=== PATIENT | female | born 1975 | race American Indian/Alaskan Native ===

== ENCOUNTER 2016-09-21 13:31 | Emergency (ER) | payer MEDICAID ==
[2016-09-21 14:33] LABS: Basophils % (Auto) 0.3 % (0.0-1.8); Eosinophils % (Auto) 0.3 % (0.0-4.3); Hematocrit 37.9 % (30.3-42.9); Hemoglobin 12.2 gm/dl (10.1-14.3); Mean Corpuscular HGB Conc 32 % (30-34); Mean Corpuscular Hemoglobin 28 pg (28-32); Mean Corpuscular Volume 86 fl (79-97); Platelet Count 280 K/mm3 (140-440); Red Blood Count 4.39 M/mm3 (3.65-5.03); Red Cell Distribution Width 16.1 % (13.2-15.2); White Blood Count 14.9 K/mm3 (4.5-11.0)
[2016-09-21 15:07] LABS: Anion Gap 18 mmol/L; BUN/Creatinine Ratio 7.14; Blood Urea Nitrogen 5 mg/dL (7-17); Calcium 9.1 mg/dL (8.4-10.2); Carbon Dioxide 25 mmol/L (22-30); Glucose 176 mg/dL (65-100); Potassium 3.5 mmol/L (3.6-5.0); Sodium 138 mmol/L (137-145)
[2016-09-21] MEDS ORDERED: ZOFRAN IV ONE (20:59)
[2016-09-21] MEDS ORDERED: DILAUDID IV ONE ×2 (20:59→22:23)
--- NOTE | 2016-09-21 21:31 | Emergency Department Report ---
ED General Adult HPI - General Chief complaint: Chest Pain Stated complaint: CHEST PAIN Time Seen by Provider: 09/21/16 20:27 Source: patient, old records reviewed (negative stress test 08/30/2015) Mode of arrival: Ambulatory Limitations: No Limitations - History of Present Illness Initial comments: 41-year-old female with a past medical history of immunologic disorder Vogt- Koyanagi-dominique syndrome, anxiety, diabetes, and chronic pain presents to the hospital with multiple pain complaints. Symptoms appear to be ongoing and progressive. She complains of worsening blurry vision, headache feeling like her brain is swelling, generalized joint pains, and sternal chest pain 2 weeks. Similar chest pain is described as constant, rated 10/10 intensity, worse with palpation and movement. No complaints of shortness breath, nausea, vomiting, diarrhea, or fever. Patient does take hydrocodone 10 mg and reports that it is not helping. Patient has had similar previous visits to the ED. Her bookkeeping service sales agent is Dr. Jhony Hankins associated with [facility] Severity scale (0 -10): 5 - Related Data Home Medications Medication Instructions Recorded Confirmed Last Taken Folic Acid [Folvite] 1 mg PO QDAY 11/29/13 09/21/16 09/21/16 Metformin HCl [Glucophage ER] 1,500 mg PO BID 11/29/13 09/21/16 09/21/16 Vitamin A/Vitamin D3 [Pv Vitamin A 1 cap PO TID 11/30/13 09/21/16 09/21/16 & D Softgel] Gabapentin [Neurontin] 900 mg PO TID 04/10/14 09/21/16 09/21/16 Acetaminophen [Tylenol] 500 mg PO PRN 09/21/16 09/21/16 09/21/16 Amitriptyline [Elavil] 50 mg PO QHS 09/21/16 09/21/16 09/21/16 Bee Pollen 550 mg PO 09/21/16 09/21/16 Codeine/Butalbital/ASA/Caffein 1 each PO PRN PRN 09/21/16 09/21/16 09/21/16 [Fiorinal with Codeine #3 Cap] Furosemide [Lasix] 20 mg PO QDAY 09/21/16 09/21/16 09/21/16 [place]-3 Fatty Acids/Fish Oil [Fish 1 each PO 09/21/16 09/21/16 Oil 1,000 mg Softgel] Omeprazole 20 mg PO DAILY 09/21/16 09/21/16 09/21/16 PARoxetine [Paxil] 20 mg PO DAILY 09/21/16 09/21/16 09/21/16 Promethazine [Phenergan] 25 mg ID QHS PRN 09/21/16 09/21/16 09/21/16 Sennosides/Docusate Sodium [Ra 1 each PO BID 09/21/16 09/21/16 09/21/16 Senna Plus Tablet] Turmeric Root Extract [Turmeric] 500 mg PO DAILY 09/21/16 09/21/16 09/21/16 Zolpidem [Ambien] 10 mg PO QHS 09/21/16 09/21/16 09/21/16 Previous Rx's Medication Instructions Recorded Last Taken Type HYDROcodone/APAP 5-325 [Cook 1 tab PO TID #15 tablet 11/21/14 09/21/16 Rx 5-325 mg TAB] ALPRAZolam [Xanax TAB] 0.5 mg PO BID PRN #10 tab 01/14/16 09/21/16 Rx Oxycodone HCl/Acetaminophen 1 each PO Q6HR PRN #20 tablet 09/21/16 Unknown Rx [Percocet 10/325 mg] Allergies Allergy/AdvReac Type Severity Reaction Status Date / Time No Known Allergies Allergy Verified 09/14/15 08:51 ED Review of Systems ROS: Stated complaint: CHEST PAIN Other details as noted in HPI Comment: All other systems reviewed and negative Other: Constitutional: No fevers chills Eyes: Gradually decreased visual acuity ENT: No ear pain or throat pain Neck: Denies pain Respiratory: Denies cough wheezing shortness of breath Cardiovascular: Denies palpitations, syncope GI: Denies abdominal pain, nausea, vomiting, diarrhea : Denies dysuria Musculoskeletal: Denies back pain Skin: Denies rash, lesions, erythema Neurologic: Positive headache Psychiatric: Positive depression however denies suicidal ideation ED Past Medical Hx - Past Medical History Previous Medical History?: Yes Hx Hypertension: No Hx Heart Attack/AMI: No Hx Congestive Heart Failure: No Hx Diabetes: Yes Hx Deep Vein Thrombosis: No Hx Pulmonary Embolism: No Hx GERD: No Hx Liver Disease: No Hx Renal Disease: No Hx Sickle Cell Disease: No Hx Arthritis: No Hx Headaches / Migraines: Yes Hx Seizures: No Hx Kidney Stones: No Hx Psychiatric Treatment: Yes (Panic Attacks/ ANXIETY) Hx Asthma: No Hx COPD: No Hx Tuberculosis: No Hx Dementia: No Hx HIV: No Additional medical history: Anxiety. Iisb-Jnlmdxfd-Lvprcp syndrome - Surgical History Past Surgical History?: Yes Hx Coronary Stent: No Hx Open Heart Surgery: No Hx Pacemaker: No Hx Internal Defibrillator: No Hx Cholecystectomy: No Hx Appendectomy: No Hx Breast Surgery: No Additional Surgical History: Carpal tunnel surgery on left hand - Social History Smoking Status: Current Some Day Smoker Substance Use Type: Prescribed - Medications Home Medications: Home Medications Medication Instructions Recorded Confirmed Last Taken Type Folic Acid [Folvite] 1 mg PO QDAY 11/29/13 09/21/16 09/21/16 History Metformin HCl [Glucophage ER] 1,500 mg PO BID 11/29/13 09/21/16 09/21/16 History Vitamin A/Vitamin D3 [Pv Vitamin A 1 cap PO TID 11/30/13 09/21/16 09/21/16 History & D Softgel] Gabapentin [Neurontin] 900 mg PO TID 04/10/14 09/21/16 09/21/16 History HYDROcodone/APAP 5-325 [Cook 1 tab PO TID #15 tablet 11/21/14 09/21/16 Rx 5-325 mg TAB] ALPRAZolam [Xanax TAB] 0.5 mg PO BID PRN #10 tab 01/14/16 09/21/16 09/21/16 Rx Acetaminophen [Tylenol] 500 mg PO PRN 09/21/16 09/21/16 09/21/16 History Amitriptyline [Elavil] 50 mg PO QHS 09/21/16 09/21/16 09/21/16 History Bee Pollen 550 mg PO 09/21/16 09/21/16 History Codeine/Butalbital/ASA/Caffein 1 each PO PRN PRN 09/21/16 09/21/16 09/21/16 History [Fiorinal with Codeine #3 Cap] Furosemide [Lasix] 20 mg PO QDAY 09/21/16 09/21/16 09/21/16 History [place]-3 Fatty Acids/Fish Oil [Fish 1 each PO 09/21/16 09/21/16 History Oil 1,000 mg Softgel] Omeprazole 20 mg PO DAILY 09/21/16 09/21/16 09/21/16 History Oxycodone HCl/Acetaminophen 1 each PO Q6HR PRN #20 tablet 09/21/16 Unknown Rx [Percocet 10/325 mg] PARoxetine [Paxil] 20 mg PO DAILY 09/21/16 09/21/16 09/21/16 History Promethazine [Phenergan] 25 mg ID QHS PRN 09/21/16 09/21/16 09/21/16 History Sennosides/Docusate Sodium [Ra 1 each PO BID 09/21/16 09/21/16 09/21/16 History Senna Plus Tablet] Turmeric Root Extract [Turmeric] 500 mg PO DAILY 09/21/16 09/21/16 09/21/16 History Zolpidem [Ambien] 10 mg PO QHS 09/21/16 09/21/16 09/21/16 History ED Physical Exam - General Limitations: No Limitations - Other Other exam information: General: No limitations, patient is alert in no acute distress Head exam: Atraumatic, normocephalic Eyes exam: Normal appearance, pupils equal reactive to light, extraocular movements intact ENT: Moist mucous membrane, normal oropharynx Neck exam: Normal inspection, full range of motion, no meningismus nontender Respiratory exam: Clear to auscultation bilateral, no wheezes, rales, crackles Cardiovascular: Normal rate and rhythm, normal heart sounds. Reproducible sternal chest wall tenderness Abdomen: Soft, nondistended, and nontender, with normal bowel sounds, no rebound, or guarding Extremity: Full range of motion normal inspection no deformity, no calf tenderness or edema Back: Normal Inspection, full range of motion, no tenderness Neurologic: Alert, oriented x3, cranial nerves intact, no motor or sensory deficit Psychiatric: normal affect, normal mood Skin: Warm, dry, intact ED Course Vital Signs 09/21/16 09/21/16 09/21/16 13:58 21:03 21:04 Temperature 98.1 F 98.2 F Pulse Rate 111 H 81 Respiratory 18 14 14 Rate Blood Pressure 122/74 Blood Pressure 137/78 [Left] O2 Sat by Pulse 100 100 100 Oximetry - Reevaluation(s) Reevaluation #1: 09/21/16 22:24 pt received Dilaudid 1mg, zofran 4, and solumedrol with improved pain. Additional pain dose requested. Dilaudid and toradol ordered 09/21/16 22:26 - Consultations Consultation #1: 09/21/16 21:13 Case discussed the patient's bookkeeping service sales agent Dr. Johny Hankins. He states that patient was admitted to [facility] after he saw her in the office several weeks ago. She received a burst of steroids at the time and he does not think a another burst of steroids inpatient is warranted. He does recommend one IV dose of Solu -Medrol 125 mg. I informed him we would manage her pain, right for Percocet upon discharge, and encouraged follow-up. He states that his office for reach out ot patient for follow-up ED Medical Decision Making - Lab Data Result diagrams: 09/21/16 14:22 09/21/16 14:22 Lab Results 09/21/16 09/21/16 09/21/16 Range/Units 13:44 14:22 14:22 WBC 14.9 H (4.5-11.0) K/mm3 RBC 4.39 (3.65-5.03) M/mm3 Hgb 12.2 (10.1-14.3) gm/dl Hct 37.9 (30.3-42.9) % MCV 86 (79-97) fl MCH 28 (28-32) pg MCHC 32 (30-34) % RDW 16.1 H (13.2-15.2) % Plt Count 280 (140-440) K/mm3 Lymph % (Auto) 13.2 L (13.4-35.0) % [place] % (Auto) 5.1 (0.0-7.3) % Eos % (Auto) 0.3 (0.0-4.3) % Baso % (Auto) 0.3 (0.0-1.8) % Lymph # 2.0 (1.2-5.4) K/mm3 [place] # 0.8 (0.0-0.8) K/mm3 Eos # 0.1 (0.0-0.4) K/mm3 Baso # 0.1 (0.0-0.1) K/mm3 Seg Neutrophils % 81.1 H (40.0-70.0) % Seg Neutrophils # 12.1 H (1.8-7.7) K/mm3 Sodium 138 (137-145) mmol/L Potassium 3.5 L (3.6-5.0) mmol/L Chloride 99.0 (98-107) mmol/L Carbon Dioxide 25 (22-30) mmol/L Anion Gap 18 mmol/L BUN 5 L (7-17) mg/dL Creatinine 0.7 (0.7-1.2) mg/dL Estimated GFR > 60 ml/min BUN/Creatinine Ratio 7.14 % Glucose 176 H (65-100) mg/dL POC Glucose 203 H (70-105) Calcium 9.1 (8.4-10.2) mg/dL Troponin T < 0.010 (0.00-0.029) ng/mL HCG, Qual (Negative) 09/21/16 09/21/16 09/21/16 Range/Units 14:22 17:07 20:29 WBC (4.5-11.0) K/mm3 RBC (3.65-5.03) M/mm3 Hgb (10.1-14.3) gm/dl Hct (30.3-42.9) % MCV (79-97) fl MCH (28-32) pg MCHC (30-34) % RDW (13.2-15.2) % Plt Count (140-440) K/mm3 Lymph % (Auto) (13.4-35.0) % [place] % (Auto) (0.0-7.3) % Eos % (Auto) (0.0-4.3) % Baso % (Auto) (0.0-1.8) % Lymph # (1.2-5.4) K/mm3 [place] # (0.0-0.8) K/mm3 Eos # (0.0-0.4) K/mm3 Baso # (0.0-0.1) K/mm3 Seg Neutrophils % (40.0-70.0) % Seg Neutrophils # (1.8-7.7) K/mm3 Sodium (137-145) mmol/L Potassium (3.6-5.0) mmol/L Chloride (98-107) mmol/L Carbon Dioxide (22-30) mmol/L Anion Gap mmol/L BUN (7-17) mg/dL Creatinine (0.7-1.2) mg/dL Estimated GFR ml/min BUN/Creatinine Ratio % Glucose (65-100) mg/dL POC Glucose (70-105) Calcium (8.4-10.2) mg/dL Troponin T < 0.010 < 0.010 (0.00-0.029) ng/mL HCG, Qual Negative (Negative) 09/21/16 Range/Units 20:59 WBC (4.5-11.0) K/mm3 RBC (3.65-5.03) M/mm3 Hgb (10.1-14.3) gm/dl Hct (30.3-42.9) % MCV (79-97) fl MCH (28-32) pg MCHC (30-34) % RDW (13.2-15.2) % Plt Count (140-440) K/mm3 Lymph % (Auto) (13.4-35.0) % [place] % (Auto) (0.0-7.3) % Eos % (Auto) (0.0-4.3) % Baso % (Auto) (0.0-1.8) % Lymph # (1.2-5.4) K/mm3 [place] # (0.0-0.8) K/mm3 Eos # (0.0-0.4) K/mm3 Baso # (0.0-0.1) K/mm3 Seg Neutrophils % (40.0-70.0) % Seg Neutrophils # (1.8-7.7) K/mm3 Sodium (137-145) mmol/L Potassium (3.6-5.0) mmol/L Chloride (98-107) mmol/L Carbon Dioxide (22-30) mmol/L Anion Gap mmol/L BUN (7-17) mg/dL Creatinine (0.7-1.2) mg/dL Estimated GFR ml/min BUN/Creatinine Ratio % Glucose (65-100) mg/dL POC Glucose 141 H (70-105) Calcium (8.4-10.2) mg/dL Troponin T (0.00-0.029) ng/mL HCG, Qual (Negative) - EKG Data -: EKG Interpreted by Me (sinus rate 111 possible septal infarct) - EKG Data When compared to previous EKG there are: no significant change (compared to ) - Medical Decision Making Pain is chronic due to underlying autoimmune condition. No acute emergent medical condition identified. Case has been discussed with her bookkeeping service sales agent. Patient be treated symptomatically with encouraged follow-up. Pt given po potassium - Differential Diagnosis chronic pain, infection, migraine, VT, costochondritis Critical Care Time: No Critical care attestation.: If time is entered above; I have spent that time in minutes in the direct care of this critically ill patient, excluding procedure time. ED Disposition Clinical Impression: Autoimmune disease, Gkop-Fqsjtugl-Mwalfr syndrome, Headache, Arthralgia, Costochondritis, Hypokalemia Disposition: DISCHARGED TO HOME OR SELFCARE Is pt being admited?: No Does the pt Need Aspirin: No Condition: Stable Instructions: Chronic Pain (ED), Acute Headache (ED), Arthralgia (ED) Additional Instructions: Take the pain medication as prescribed. Follow up with your rheumotologist. I contacted Dr. Hankins and he mentioned his office will reach out to tomorrow however, if do not hear from them then you may also call for follow-up Prescriptions: Oxycodone HCl/Acetaminophen [Percocet 10/325 mg] 1 each PO Q6HR PRN #20 tablet PRN Reason: Pain Referrals: Jhony Hankins MD [Other] - 3-5 Days Time of Disposition: 23:10
[2016-09-21] MEDS ORDERED: TORADOL IV ONE (21:34)
[2016-09-21] MEDS ORDERED: K-DUR PO ONE (22:28)
[2016-09-21 23:34] VITALS: BP 125/66
== END 2016-09-21 23:34 | disposition home or self-care (01) ==
LOC: ED 13:31
DX: H20.829 Vogt-Koyanagi syndrome, unspecified eye (principal); M35.9 Systemic involvement of connective tissue, unspecified; M19.90 Unspecified osteoarthritis, unspecified site; M94.0 Chondrocostal junction syndrome [Tietze]; E87.6 Hypokalemia; R51 Headache; E11.9 Type 2 diabetes mellitus without complications; F41.0 Panic disorder [episodic paroxysmal anxiety]; F17.200 Nicotine dependence, unspecified, uncomplicated
CPT/HCPCS: 36415; 80048; 82962; 84484; 84703; 85025; 93005; 93010; 96374; 96375; 96376; 99284; J1170; J1885; J2405; J2930

== ENCOUNTER 2016-11-17 17:46 | Emergency (ER) | payer MEDICAID ==
[2016-11-17 18:00] VITALS: BP 139/77
[2016-11-17 18:13] LABS: Basophils % (Auto) 0.1 % (0.0-1.8); Eosinophils % (Auto) 0.4 % (0.0-4.3); Hemoglobin 12.2 gm/dl (10.1-14.3); Mean Corpuscular HGB Conc 33 % (30-34); Mean Corpuscular Hemoglobin 28 pg (28-32); Mean Corpuscular Volume 85 fl (79-97); Platelet Count 316 K/mm3 (140-440); Red Blood Count 4.34 M/mm3 (3.65-5.03); Red Cell Distribution Width 15.6 % (13.2-15.2); White Blood Count 15.5 K/mm3 (4.5-11.0)
[2016-11-17 18:22] LABS: INR 0.97 (0.87-1.13)
[2016-11-17 18:23] LABS: Partial Thromboplastin Time 28.3 Sec. (24.2-36.6)
[2016-11-17 19:05] LABS: Anion Gap 19 mmol/L; BUN/Creatinine Ratio 6.66; Blood Urea Nitrogen 4 mg/dL (7-17); Calcium 8.8 mg/dL (8.4-10.2); Carbon Dioxide 24 mmol/L (22-30); Glucose 103 mg/dL (65-100); Potassium 3.3 mmol/L (3.6-5.0); Sodium 139 mmol/L (137-145)
--- NOTE | 2016-11-21 07:59 | ED Elopement Review ---
ED Pt Elopement review - Results review Lab results: Laboratory Tests 11/17/16 11/17/16 11/17/16 18:03 18:03 18:03 WBC 15.5 H RBC 4.34 Hgb 12.2 Hct 37.0 MCV 85 MCH 28 MCHC 33 RDW 15.6 H Plt Count 316 Lymph % (Auto) 24.0 [place] % (Auto) 5.4 Eos % (Auto) 0.4 Baso % (Auto) 0.1 Lymph # 3.7 [place] # 0.8 Eos # 0.1 Baso # 0.0 Seg Neutrophils % 70.1 H Seg Neutrophils # 10.8 H PT 12.8 INR 0.97 APTT 28.3 Thrombin Time Sodium 139 Potassium 3.3 L Chloride 99.0 Carbon Dioxide 24 Anion Gap 19 BUN 4 L Creatinine 0.6 L Estimated GFR > 60 BUN/Creatinine Ratio 6.66 Glucose 103 H POC Glucose Calcium 8.8 Troponin T < 0.010 11/17/16 11/17/16 18:07 18:10 WBC RBC Hgb Hct MCV MCH MCHC RDW Plt Count Lymph % (Auto) [place] % (Auto) Eos % (Auto) Baso % (Auto) Lymph # [place] # Eos # Baso # Seg Neutrophils % Seg Neutrophils # PT INR APTT Thrombin Time 15.2 Sodium Potassium Chloride Carbon Dioxide Anion Gap BUN Creatinine Estimated GFR BUN/Creatinine Ratio Glucose POC Glucose 104 Calcium Troponin T - Call Back decision Pt Call Back Decision: Pt to F/U with PMD (leukopcytosis headache)
== END 2016-11-18 | disposition left against medical advice (07) ==
LOC: ED 17:46
DX: G43.909 Migraine, unspecified, not intractable, without status migrainosus (principal); Z53.21 Procedure and treatment not carried out due to patient leaving prior to being seen by health care provider
CPT/HCPCS: 36415; 80048; 82962; 84484; 85025; 85610; 85670; 85730; 93005; 93010

== ENCOUNTER 2017-02-18 02:37 | Emergency (ER) | payer BC, MEDICAID ==
[2017-02-18 04:24] LABS: Basophils % (Auto) 0.6 % (0.0-1.8); Eosinophils % (Auto) 1.3 % (0.0-4.3); Hematocrit 35.9 % (30.3-42.9); Hemoglobin 12.1 gm/dl (10.1-14.3); Mean Corpuscular HGB Conc 34 % (30-34); Mean Corpuscular Hemoglobin 28 pg (28-32); Mean Corpuscular Volume 84 fl (79-97); Platelet Count 314 K/mm3 (140-440); Red Blood Count 4.27 M/mm3 (3.65-5.03); White Blood Count 14.7 K/mm3 (4.5-11.0)
[2017-02-18 04:39] LABS: Alanine Aminotransferase 13 units/L (7-56); Albumin 3.8 g/dL (3.9-5); Albumin/Globulin Ratio 1.5 %; Alkaline Phosphatase 81 units/L (35-129); Anion Gap 18 mmol/L; BUN/Creatinine Ratio 13.33; Bilirubin,Total < 0.20 mg/dL (0.1-1.2); Blood Urea Nitrogen 8 mg/dL (7-17); Calcium 8.9 mg/dL (8.4-10.2); Carbon Dioxide 26 mmol/L (22-30); Chloride 100.4 mmol/L (98-107); Glucose 98 mg/dL (65-100); Potassium 3.7 mmol/L (3.6-5.0); Sodium 141 mmol/L (137-145); Total Protein 6.3 g/dL (6.3-8.2)
[2017-02-18 04:57] LABS: Bacteria,Urine 1+ /HPF (Negative); Bilirubin,Urine NEG (Negative); Blood,Urine NEG (Negative); Ketones,Urine NEG (Negative); Leukocyte Esterase,Urine NEG (Negative); Mucus,Urine FEW /HPF; Nitrite,Urine NEG (Negative); Protein,Urine <15 mg/dL mg/dL (Negative); Urobilinogen,Urine < 2.0 mg/dL (<2.0)
--- NOTE | 2017-02-18 05:17 | Cat Scan Report ---
FINAL REPORT PROCEDURE: CT HEAD/BRAIN WO CON TECHNIQUE: Computerized tomography of the head was performed without contrast material. HISTORY: VKH syndrome COMPARISON: 01/14/2016 FINDINGS: Skull and scalp: Normal. Paranasal sinuses: Normal. Ventricles and subarachnoid spaces: Normal. Cerebrum: No evidence of hemorrhage, acute infarction or mass . Cerebellum and brainstem: No evidence of hemorrhage, acute infarction or mass. Vasculature: Normal. Comments: None. IMPRESSION: There is no evidence of an acute intracranial process.
[2017-02-18] MEDS ORDERED: MORPHINE IV ONE (06:27)
[2017-02-18] MEDS ORDERED: ZOFRAN IV ONE (06:27)
[2017-02-18] MEDS ORDERED: NACL 0.9% 1000 ML 1,000 ML IV ONE (06:47)
--- NOTE | 2017-02-18 06:47 | Emergency Department Report ---
HPI - General Chief Complaint: Nausea/Vomiting/Diarrhea Time Seen by Provider: 02/18/17 06:13 - HPI HPI: This is a 41-year-old female who presents the emergency department from home with complaint of an exacerbation of an autoimmune disorder she has, VKH syndrome, that has been going on for the past 3 days. The patient complains of some ear drainage, generalized headache, nausea and vomiting. She has tried some Vicodin for her symptoms without any relief. She denies any slurred speech, chest pain, shortness of breath, fever. No recent travel or sick contacts at home. Her primary care physician is a Dr. Khan. Fisher Clam is Dr. Patel. ED Past Medical Hx - Past Medical History Previous Medical History?: Yes Hx Hypertension: No Hx Heart Attack/AMI: No Hx Congestive Heart Failure: No Hx Diabetes: No Hx Deep Vein Thrombosis: No Hx Pulmonary Embolism: No Hx GERD: No Hx Liver Disease: No Hx Renal Disease: No Hx Sickle Cell Disease: No Hx Arthritis: No Hx Headaches / Migraines: Yes Hx Seizures: No Hx Kidney Stones: No Hx Psychiatric Treatment: Yes (Panic Attacks/ ANXIETY) Hx Asthma: No Hx COPD: No Hx Tuberculosis: No Hx Dementia: No Hx HIV: No Additional medical history: Anxiety. Ajsr-Gcdzyzyp-Qmrptg syndrome - Surgical History Past Surgical History?: Yes Hx Coronary Stent: No Hx Open Heart Surgery: No Hx Pacemaker: No Hx Internal Defibrillator: No Hx Cholecystectomy: No Hx Appendectomy: No Hx Breast Surgery: No Additional Surgical History: Carpal tunnel surgery on left hand - Social History Smoking Status: Current Every Day Smoker Substance Use Type: None - Medications Home Medications: Home Medications Medication Instructions Recorded Confirmed Last Taken Type Folic Acid [Folvite] 1 mg PO QDAY 11/29/13 09/21/16 09/21/16 History Metformin HCl [Glucophage ER] 1,500 mg PO BID 11/29/13 09/21/16 09/21/16 History Vitamin A/Vitamin D3 [Pv Vitamin A 1 cap PO TID 11/30/13 09/21/16 09/21/16 History & D Softgel] Gabapentin [Neurontin] 900 mg PO TID 04/10/14 09/21/16 09/21/16 History ALPRAZolam [Xanax TAB] 0.5 mg PO BID PRN #10 tab 01/14/16 09/21/16 09/21/16 Rx Acetaminophen [Tylenol] 500 mg PO PRN 09/21/16 09/21/16 09/21/16 History Amitriptyline [Elavil] 50 mg PO QHS 09/21/16 09/21/16 09/21/16 History Bee Pollen 550 mg PO 09/21/16 09/21/16 History Codeine/Butalbital/ASA/Caffein 1 each PO PRN PRN 09/21/16 09/21/16 09/21/16 History [Fiorinal with Codeine #3 Cap] Furosemide [Lasix] 20 mg PO QDAY 09/21/16 09/21/16 09/21/16 History [place]-3 Fatty Acids/Fish Oil [Fish 1 each PO 09/21/16 09/21/16 History Oil 1,000 mg Softgel] Omeprazole 20 mg PO DAILY 09/21/16 09/21/16 09/21/16 History PARoxetine [Paxil] 20 mg PO DAILY 09/21/16 09/21/16 09/21/16 History Promethazine [Phenergan] 25 mg [place] QHS PRN 09/21/16 09/21/16 09/21/16 History Sennosides/Docusate Sodium [Ra 1 each PO BID 09/21/16 09/21/16 09/21/16 History Senna Plus Tablet] Turmeric Root Extract [Turmeric] 500 mg PO DAILY 09/21/16 09/21/16 09/21/16 History Zolpidem [Ambien] 10 mg PO QHS 09/21/16 09/21/16 09/21/16 History Ondansetron [Zofran Odt] 4 mg PO Q8HR PRN #10 tab.rapdis 02/18/17 Unknown Rx Oxycodone HCl/Acetaminophen 1 each PO Q6HR PRN #12 tablet 02/18/17 Unknown Rx [Percocet 10/325 mg] predniSONE [Deltasone] 20 mg PO QDAY #7 tab 02/18/17 Unknown Rx ED Review of Systems ROS: Stated complaint: NAUSEA/ VOMITING, EAR DRAINING Other details as noted in HPI Comment: All other systems reviewed and negative Constitutional: denies: chills, fever Eyes: denies: eye pain, eye discharge ENT: ear pain. denies: throat pain Respiratory: denies: cough, shortness of breath, wheezing Cardiovascular: denies: chest pain, palpitations Gastrointestinal: nausea, vomiting Genitourinary: denies: urgency, dysuria, discharge Musculoskeletal: denies: back pain, joint swelling, arthralgia Skin: denies: rash, lesions Neurological: headache. denies: weakness, numbness Physical Exam - Physical Exam Vital Signs: Vital Signs 02/18/17 02/18/17 03:33 04:55 Temperature 98.0 F 98 F Pulse Rate 89 79 Respiratory 18 18 Rate Blood Pressure 128/76 Blood Pressure 114/66 [Left] O2 Sat by Pulse 98 98 Oximetry Physical Exam: GENERAL: The patient is well-developed well-nourished. HENT: Normocephalic. Atraumatic. Patient has moist mucous membranes. EYES: Extraocular motions are intact. Pupils equal reactive to light bilaterally. No nystagmus. NECK: Supple. Trachea is midline. CHEST/LUNGS: Clear to auscultation. There is no respiratory distress noted. HEART/CARDIOVASCULAR: Regular. There is no tachycardia. There is no gallop rub or murmur. ABDOMEN: Abdomen is soft, nontender. Patient has normal bowel sounds. There is no abdominal distention. SKIN: There is no rash. There is no edema. There is no diaphoresis. NEURO: The patient is awake, alert, and oriented. The patient is cooperative. The patient has no focal neurologic deficits. The patient has normal speech. Cranial nerves II through XII grossly intact. MUSCULOSKELETAL: There is no tenderness or deformity. There is no limitation range of motion. There is no evidence of acute injury. ED Course Vital Signs 02/18/17 02/18/17 03:33 04:55 Temperature 98.0 F 98 F Pulse Rate 89 79 Respiratory 18 18 Rate Blood Pressure 128/76 Blood Pressure 114/66 [Left] O2 Sat by Pulse 98 98 Oximetry - Consultations Consultation #1: I spoke to the patient's cpo, Dr. Hankins, who suggested that the patient go up to 20 mg of prednisone daily and to follow-up with her certified nurse aide and he himself will also contact her for a follow-up appointment this week. 02/18/17 14:14 ED Medical Decision Making - Lab Data Result diagrams: 02/18/17 04:10 02/18/17 04:10 - Radiology Data Radiology results: report reviewed CT of the head does not show any acute intracranial process including no ischemia, shift, mass, bleeding or skull fracture. - Medical Decision Making 41-year-old female with a rare autoimmune disease presents with a headache, nausea, vomiting that is consistent with previous exacerbations of this disease process. A CT of the head without contrast was done prior to my shift starting and it does not show any bleed, shift, mass or any acute process. Labs are mostly unremarkable and do not show any etiology of her symptoms. She was given some IV fluid, pain medication, steroids and nausea medication. Upon reevaluation she is feeling improved. I spoke with her cpo recommended going to 20 mg of prednisone daily and encouraged follow-up with her certified nurse aide and rheumatology also said they would call the patient is week for follow-up appointment. All this was relayed to the patient and she understands and agrees to the plan. She will return to the ER with any worsening of her symptoms or any acute distress. - Differential Diagnosis tension headache, migraine headache, viral syndrome Critical Care Time: No Critical care attestation.: If time is entered above; I have spent that time in minutes in the direct care of this critically ill patient, excluding procedure time. ED Disposition Clinical Impression: Autoimmune disease Oswd-Ytmqrsak-Oxxsls syndrome Qualifiers: Laterality: unspecified laterality Qualified Code(s): H20.829 - Vogt-Koyanagi syndrome, unspecified eye Headache Qualifiers: Headache type: unspecified Headache chronicity pattern: episodic headache Intractability: not intractable Qualified Code(s): R51 - Headache Nausea & vomiting Qualifiers: Vomiting type: unspecified Vomiting Intractability: non-intractable Qualified Code(s): R11.2 - Nausea with vomiting, unspecified Disposition: DC-01 TO HOME OR SELFCARE Is pt being admited?: No Condition: Stable Instructions: Migraine Headache (ED), Acute Headache (ED), Acute Nausea and Vomiting (ED) Additional Instructions: Please follow up with your certified nurse aide, cpo, and primary care physician in the next few days without fail. Return to the emergency Department with any worsening of her symptoms or any acute distress. Prescriptions: Ondansetron [Zofran Odt] 4 mg PO Q8HR PRN #10 tab.rapdis PRN Reason: Nausea Oxycodone HCl/Acetaminophen [Percocet 10/325 mg] 1 each PO Q6HR PRN #12 tablet PRN Reason: Pain predniSONE [Deltasone] 20 mg PO QDAY #7 tab Referrals: LESVIA HANKINS MD [Referring] - [facility] NADEEM LANG MD [Staff Physician] - [facility], [Primary Care Provider] - [facility] Time of Disposition: 09:02
[2017-02-18 07:57] VITALS: BP 110/56
[2017-02-18] MEDS ORDERED: DILAUDID IV ONE (08:05)
== END 2017-02-18 09:20 | disposition home or self-care (01) ==
LOC: ED 02:37
DX: M35.9 Systemic involvement of connective tissue, unspecified (principal); H20.829 Vogt-Koyanagi syndrome, unspecified eye; R51 Headache; R11.2 Nausea with vomiting, unspecified; F17.200 Nicotine dependence, unspecified, uncomplicated
CPT/HCPCS: 36415; 70450; 80053; 81001; 85025; 96361; 96374; 96375; 99284; J1170; J2270; J2405; J2930; J7030

== ENCOUNTER 2017-08-27 12:46 | Emergency (ER) | payer BC, OTHER ==
[2017-08-27] MEDS ORDERED: PERCOCET 5/325 PO ONE (15:29)
--- NOTE | 2017-08-27 15:32 | Emergency Department Report ---
Chief Complaint: Pain General Stated Complaint: MIGRAINES, NAUSEA, FEVER - HPI History of Present Illness: 42-year-old female with a history of VKH syndrome and fibromyalgia, diabetes presents with a three-day history of dizziness, body aches, migraine headaches with photophobia. Takes chronic steroids. Follows with primary care and rheumatology. - ROS Review of Systems: Patient is positive for headache, photophobia, body aches, dizziness/ lightheadedness Patient is negative for fever, shortness of breath, nausea, vomiting - Exam Vital Signs: Vital Signs 08/27/17 12:57 Temperature 98.6 F Pulse Rate 97 H Respiratory 18 Rate Blood Pressure 130/72 O2 Sat by Pulse 96 Oximetry Physical Exam: Patient is awake and alert. She is tearful secondary to her pain. MSE screening note: Focused history and physical exam performed. Due to findings the following was ordered: I ordered a CBC, CMP, TSH, troponin. She was given a Percocet for her discomfort. She will be moved to the main emergency Department side for further evaluation and treatment. ED Disposition for MSE Condition: Stable
[2017-08-27 15:55] LABS: Basophils # (Auto) 0.1 K/mm3 (0.0-0.1); Basophils % (Auto) 0.4 % (0.0-1.8); Eosinophils # (Auto) 0.3 K/mm3 (0.0-0.4); Eosinophils % (Auto) 2.3 % (0.0-4.3); Hemoglobin 12.5 gm/dl (10.1-14.3); Lymphocytes # (Auto) 3.9 K/mm3 (1.2-5.4); Lymphocytes % (Auto) 27.7 % (13.4-35.0); Mean Corpuscular HGB Conc 34 % (30-34); Mean Corpuscular Hemoglobin 28 pg (28-32); Mean Corpuscular Volume 84 fl (79-97); Monocytes # (Auto) 0.9 K/mm3 (0.0-0.8); Monocytes % (Auto) 6.2 % (0.0-7.3); Platelet Count 273 K/mm3 (140-440); Red Blood Count 4.43 M/mm3 (3.65-5.03); Red Cell Distribution Width 17.5 % (13.2-15.2)
[2017-08-27 16:15] LABS: Alanine Aminotransferase 15 units/L (7-56); Albumin 4.2 g/dL (3.9-5); BUN/Creatinine Ratio 13; Blood Urea Nitrogen 9 mg/dL (7-17); Calcium 9.1 mg/dL (8.4-10.2); Hemolysis Index 10
[2017-08-27] MEDS ORDERED: REGLAN IV ONE (16:59)
[2017-08-27] MEDS ORDERED: BENADRYL IV ONE (16:59)
[2017-08-27] MEDS ORDERED: MORPHINE IV ONE ×2 (16:59→18:51)
--- NOTE | 2017-08-27 18:51 | Emergency Department Report ---
HPI - General Chief Complaint: Pain General Time Seen by Provider: 08/27/17 16:18 - HPI HPI: The patient is a 42-year-old female with a history of chronic headaches who presents for evaluation of recurrence of headache. The patient reports on and off headache for the past 3 days, 9/10 in severity, aching in quality, worsened with bright lights. She shares that her symptoms are consistent with previous episodes of chronic migraines. The patient denies fever, head injury or trauma to the head, neck pain or neck stiffness, chest pain, cough, dyspnea, abdominal pain, vomiting, dysuria, vision or hearing changes, smell or taste changes, paresthesias, facial drooping, slurred speech, seizure-like activity, urine or bowel incontinence or retention, or other focal neurological deficit. ED Past Medical Hx - Past Medical History Hx Hypertension: No Hx Heart Attack/AMI: No Hx Congestive Heart Failure: No Hx Diabetes: Yes Hx Deep Vein Thrombosis: No Hx Pulmonary Embolism: No Hx GERD: No Hx Liver Disease: No Hx Renal Disease: No Hx Sickle Cell Disease: No Hx Arthritis: No Hx Headaches / Migraines: Yes Hx Seizures: No Hx Kidney Stones: No Hx Psychiatric Treatment: Yes (Panic Attacks/ ANXIETY) Hx Asthma: No Hx COPD: No Hx Tuberculosis: No Hx Dementia: No Hx HIV: No Additional medical history: Anxiety. [id number]-[id number] syndrome - Surgical History Hx Coronary Stent: No Hx Open Heart Surgery: No Hx Pacemaker: No Hx Internal Defibrillator: No Hx Cholecystectomy: No Hx Appendectomy: No Hx Breast Surgery: No Additional Surgical History: Carpal tunnel surgery on left hand,fibromyalgia - Social History Smoking Status: Current Every Day Smoker Substance Use Type: None - Medications Home Medications: Home Medications Medication Instructions Recorded Confirmed Last Taken Type Acetaminophen [Tylenol] 500 mg PO PRN 09/21/16 04/20/17 04/20/17 History Amitriptyline [Elavil] 50 mg PO QHS 09/21/16 04/20/17 04/19/17 History Codeine/Butalbital/ASA/Caffein 1 each PO PRN PRN 09/21/16 04/20/17 04/20/17 History [Fiorinal with Codeine #3 Cap] PARoxetine [Paxil] 20 mg PO DAILY 09/21/16 04/20/17 04/20/17 History Olanzapine [Zyprexa] 15 mg PO DAILY 04/20/17 04/20/17 04/20/17 History Furosemide [Lasix TAB] 20 mg PO QDAY #10 04/22/17 04/20/17 04/20/17 Rx Levofloxacin [Levaquin] 750 mg PO QDAY #7 tablet 04/22/17 Unknown Rx Mycophenolate [Cellcept] 500 mg PO BID tablet 04/22/17 Unknown Rx OLANzapine [ZyPREXA] 15 mg PO DAILY tablet 04/22/17 Unknown Rx predniSONE [Deltasone] 20 mg PO QDAY #30 tab 04/22/17 Unknown Rx Azithromycin [Zithromax Z-JOVI] 250 mg PO QDAY #6 tablet 08/27/17 Unknown Rx HYDROcodone/APAP 7.5-325 [[place] 1 each PO Q8HR PRN #10 tablet 08/27/17 Unknown Rx 7.5-325 mg TAB] predniSONE [Deltasone] 20 mg PO QDAY #5 tab 08/27/17 Unknown Rx ED Review of Systems ROS: Stated complaint: MIGRAINES, NAUSEA, FEVER Other details as noted in HPI Constitutional: denies: fever ENT: denies: throat or neck pain Respiratory: denies: cough, shortness of breath Cardiovascular: denies: chest pain Endocrine: denies unexplained weight loss or gain Gastrointestinal: denies: abdominal pain, nausea Genitourinary: denies: dysuria Musculoskeletal: denies: leg swelling Skin: denies: rash Neurological: reports headache Hematological/Lymphatic: denies: easy bleeding or easy bruising Psych: denies sadness or hopelessness Physical Exam - Physical Exam Vital Signs: Vital Signs 08/27/17 12:57 Temperature 98.6 F Pulse Rate 97 H Respiratory 18 Rate Blood Pressure 130/72 O2 Sat by Pulse 96 Oximetry Physical Exam: General: well-nourished, well-developed, no acute distress Head: Normocephalic, atraumatic Eyes: normal sclera ENT: Mucous membranes are pale and dry Neck: No neck stiffness, no cervical adenopathy Respiratory: Breath sounds equal bilaterally, no wheezing, rales, or rhonchi Cardio: S1 and S2 present, no murmurs, rubs, gallops, capillary refill is delayed Abdomen: Normoactive bowel sounds, soft abdomen, no rigidity, no guarding or rebound tenderness Musc: No pitting edema Skin: No rash Neuro: alert oriented x4, normal cognition, speech normal, PERRL, EOM intact, no facial drooping, no uvula or tongue deviation on protrusion, no deficit with rotation of neck or shoulder shrug, no obvious gross motor deficit in the upper or lower extremities with flexion or extension at the shoulder, elbow, wrist, hip, knee, or ankle bilaterally, no obvious gross sensation deficit to crude touch or 2 pt discrimination, 2+ symmetric reflexes on DTR testing, no dysmetria , dysdiadochokinesia, no coordination deficit with [id number] or heel-to- humphries testing, romberg negative, patient able to to ambulate without abnormal gait Psych: Normal affect ED Course Vital Signs 08/27/17 12:57 Temperature 98.6 F Pulse Rate 97 H Respiratory 18 Rate Blood Pressure 130/72 O2 Sat by Pulse 96 Oximetry ED Medical Decision Making - Lab Data Result diagrams: 08/27/17 15:38 08/27/17 15:38 - Medical Decision Making The patient was seen and examined by myself. The patient is placed on a campus monitor and continuous pulse ox. On initial evaluation, the patient was found to be in no distress. As there are no neuro deficits or other findings on examination concerning for acute meningitis or other intracranial disease process, and as the patient states that symptoms are consistent with previous headaches, the patient is low pretest probability for meningitis and a CAT scan of the head will not be obtained at this time. IV access is established and the patient is given IV Reglan, Benadryl, and IV analgesic for headache. The patient was reevaluated and reported that their symptoms were markedly improved. The patient is stable for discharge with outpatient follow-up. The patient is given follow-up and return instructions. The patient expressed understanding and agreed with the plan. The patient is discharged in stable condition. Critical care attestation.: If time is entered above; I have spent that time in minutes in the direct care of this critically ill patient, excluding procedure time. ED Disposition Clinical Impression: Acute non intractable tension-type headache, Dehydration, mild, Myalgia Disposition: TO HOME OR SELFCARE Is pt being admited?: No Does the pt Need Aspirin: No Condition: Stable Instructions: Acute Headache (ED), Musculoskeletal Pain (ED) Additional Instructions: Do not take more than the prescribed dose of pain medicine, or combine or take the pain medicine prescribed to you today with other pain medicine, sleeping medicine or other sedatives, or with alcohol, as doing so may cause central nervous system sedation and respiratory depression, and potentially cause you to stop breathing and . Additionally, do not drive a vehicle, operate heavy machinery, or engage in any activity that would cause harm to yourself or others after taking the pain medicine prescribed to you. Prescriptions: Azithromycin [Zithromax Z-JOVI] 250 mg PO QDAY #6 tablet HYDROcodone/APAP 7.5-325 [[place] 7.5-325 mg TAB] 1 each PO Q8HR PRN #10 tablet PRN Reason: Pain predniSONE [Deltasone] 20 mg PO QDAY #5 tab Referrals: PRIMARY CARE, [Primary Care Provider] - 3-5 Days Time of Disposition: 18:44
[2017-08-27 19:13] VITALS: BP 136/68
== END 2017-08-27 19:13 | disposition home or self-care (01) ==
LOC: ED 12:46
DX: G44.209 Tension-type headache, unspecified, not intractable (principal); E86.0 Dehydration; M79.1 Myalgia; I10 Essential (primary) hypertension; G43.909 Migraine, unspecified, not intractable, without status migrainosus; F41.9 Anxiety disorder, unspecified; F17.200 Nicotine dependence, unspecified, uncomplicated
CPT/HCPCS: 36415; 80053; 82550; 84443; 84484; 85025; 93005; 93010; 96374; 96375; 96376; 99284; J1200; J2270; J2765; J2930

== ENCOUNTER 2017-08-31 11:57 | Inpatient (IN) | payer OTHER ==
--- NOTE | 2017-08-31 14:22 | Emergency Department Report ---
Blank Doc - Documentation Documentation: Patient is a 42-year-old female who is presenting with headache chest pain for the last several days. Patient had a syncopal episode on arrival to the emergency department. Patient has a history of VK H syndrome. Patient is complaining of chest and head pain patient be moved to the main area for continued care monitoring.
[2017-08-31 14:53] LABS: Basophils # (Auto) 0.2 K/mm3 (0.0-0.1); Basophils % (Auto) 1.1 % (0.0-1.8); Eosinophils % (Auto) 0.2 % (0.0-4.3); Hematocrit 39.9 % (30.3-42.9); Lymphocytes % (Auto) 15.9 % (13.4-35.0); Mean Corpuscular HGB Conc 33 % (30-34); Mean Corpuscular Hemoglobin 28 pg (28-32); Mean Corpuscular Volume 85 fl (79-97); Monocytes # (Auto) 0.9 K/mm3 (0.0-0.8); Monocytes % (Auto) 4.6 % (0.0-7.3); Platelet Count 351 K/mm3 (140-440); Red Blood Count 4.72 M/mm3 (3.65-5.03); Red Cell Distribution Width 16.9 % (13.2-15.2)
--- NOTE | 2017-08-31 14:54 | XRay Report ---
AP CHEST: HISTORY: chest pain AP view of the chest demonstrates a normal mediastinal and cardiac contour with clear lungs and normal bony and soft tissue structures. IMPRESSION: Unremarkable AP chest. No significant change since 04/20/17.
[2017-08-31 15:16] LABS: Alanine Aminotransferase 18 units/L (7-56); Albumin 4.1 g/dL (3.9-5); BUN/Creatinine Ratio 12; Blood Urea Nitrogen 7 mg/dL (7-17); Calcium 9.4 mg/dL (8.4-10.2); Hemolysis Index 43
[2017-08-31] MEDS ORDERED: DILAUDID IV ONE (15:53)
--- NOTE | 2017-08-31 15:57 | Emergency Department Report ---
HPI - General Chief Complaint: Chest Pain Time Seen by Provider: 08/31/17 14:16 - HPI HPI: 42-year-old female presents to the emergency department with a complaint of a headache and some midsternal chest pain that has been going on since last Sunday. When she came back for evaluation she was seen passing out in the Q track. She is currently awake and alert. She has a history of diabetes, migraines, anxiety, fibromyalgia and the KH syndrome. She has a primary care physician, Dr. 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 She has been taking her chronic steroids as well as some pain medication for her symptoms without any relief. No recent travel or sick contacts at home. The patient was seen here on Sunday, 5 days ago for some similar symptoms. She has a history of a negative stress test from August 2015. ED Past Medical Hx - Past Medical History Hx Hypertension: No Hx Heart Attack/AMI: No Hx Congestive Heart Failure: No Hx Diabetes: Yes Hx Deep Vein Thrombosis: No Hx Pulmonary Embolism: No Hx GERD: No Hx Liver Disease: No Hx Renal Disease: No Hx Sickle Cell Disease: No Hx Arthritis: No Hx Headaches / Migraines: Yes Hx Seizures: No Hx Kidney Stones: No Hx Psychiatric Treatment: Yes (Panic Attacks/ ANXIETY) Hx Asthma: No Hx COPD: No Hx Tuberculosis: No Hx Dementia: No Hx HIV: No Additional medical history: Anxiety. Oicg-[id number] syndrome - Surgical History Hx Coronary Stent: No Hx Open Heart Surgery: No Hx Pacemaker: No Hx Internal Defibrillator: No Hx Cholecystectomy: No Hx Appendectomy: No Hx Breast Surgery: No Additional Surgical History: Carpal tunnel surgery on left hand,fibromyalgia - Social History Smoking Status: Current Every Day Smoker Substance Use Type: None - Medications Home Medications: Home Medications Medication Instructions Recorded Confirmed Last Taken Type Acetaminophen [Tylenol] 500 mg PO PRN 09/21/16 04/20/17 04/20/17 History Amitriptyline [Elavil] 50 mg PO QHS 09/21/16 04/20/17 04/19/17 History Codeine/Butalbital/ASA/Caffein 1 each PO PRN PRN 09/21/16 04/20/17 04/20/17 History [Fiorinal with Codeine #3 Cap] PARoxetine [Paxil] 20 mg PO DAILY 09/21/16 04/20/17 04/20/17 History Olanzapine [Zyprexa] 15 mg PO DAILY 04/20/17 04/20/17 04/20/17 History Furosemide [Lasix TAB] 20 mg PO QDAY #10 04/22/17 04/20/17 04/20/17 Rx Levofloxacin [Levaquin] 750 mg PO QDAY #7 tablet 04/22/17 Unknown Rx Mycophenolate [Cellcept] 500 mg PO BID tablet 04/22/17 Unknown Rx OLANzapine [ZyPREXA] 15 mg PO DAILY tablet 04/22/17 Unknown Rx predniSONE [Deltasone] 20 mg PO QDAY #30 tab 04/22/17 Unknown Rx Azithromycin [Zithromax Z-JOVI] 250 mg PO QDAY #6 tablet 08/27/17 Unknown Rx HYDROcodone/APAP 7.5-325 [[place] 1 each PO Q8HR PRN #10 tablet 08/27/17 Unknown Rx 7.5-325 mg TAB] predniSONE [Deltasone] 20 mg PO QDAY #5 tab 08/27/17 Unknown Rx ED Review of Systems ROS: Stated complaint: CHEST PAIN Other details as noted in HPI Comment: All other systems reviewed and negative Constitutional: denies: chills, fever Eyes: denies: eye pain, eye discharge, vision change ENT: denies: ear pain, throat pain Respiratory: shortness of breath. denies: cough Cardiovascular: chest pain, syncope. denies: palpitations Gastrointestinal: denies: abdominal pain, nausea, diarrhea Genitourinary: denies: urgency, dysuria, discharge Musculoskeletal: denies: back pain, joint swelling, arthralgia Skin: denies: rash, lesions Neurological: headache. denies: numbness Physical Exam - Physical Exam Vital Signs: Vital Signs 08/31/17 08/31/17 12:10 15:26 Temperature 98.6 F Pulse Rate 101 H Respiratory 18 24 Rate Blood Pressure 141/85 O2 Sat by Pulse 95 100 Oximetry Physical Exam: GENERAL: The patient is well-developed well-nourished. HENT: Normocephalic. Atraumatic. Patient has moist mucous membranes. EYES: Extraocular motions are intact. Pupils equal reactive to light bilaterally. No nystagmus. NECK: Supple. Trachea is midline. CHEST/LUNGS: Clear to auscultation. There is no respiratory distress noted. HEART/CARDIOVASCULAR: Regular. There is no tachycardia. There is no murmur. ABDOMEN: Abdomen is soft, nontender. Patient has normal bowel sounds. There is no abdominal distention. SKIN: Skin is warm and dry. There is some non-pitting swelling of the bilateral hands and the bilateral lower extremities. NEURO: The patient is awake, alert, and oriented. The patient is cooperative. The patient has no focal neurologic deficits. The patient has normal speech. MUSCULOSKELETAL: There is no tenderness or deformity. There is no evidence of acute injury. ED Course Vital Signs 08/31/17 08/31/17 12:10 15:26 Temperature 98.6 F Pulse Rate 101 H Respiratory 18 24 Rate Blood Pressure 141/85 O2 Sat by Pulse 95 100 Oximetry ED Medical Decision Making - Lab Data Result diagrams: 08/31/17 14:38 08/31/17 14:38 - EKG Data -: EKG Interpreted by Me EKG shows normal: sinus rhythm, axis, intervals, QRS complexes (Q waves to the septal leads), ST-T waves Rate: tachycardia (109 bpm) - EKG Data When compared to previous EKG there are: no significant change Interpretation: unchanged when compared t (08/27/17) - Radiology Data Radiology results: report reviewed, image reviewed interpreted by me: Chest x-ray does not show any acute process. There are no pleural effusions, obvious pneumonia and there is no pneumothorax. PROCEDURE: CT HEAD/BRAIN WO CON TECHNIQUE: Computerized tomography of the head was performed without contrast material. DLP 1000.91 mGy-cm. HISTORY: Syncope. Headache. COMPARISON: CT scan of the brain dated 02/18/2017. FINDINGS: Skull and scalp: Normal. Paranasal sinuses: Normal. Ventricles and subarachnoid spaces: Normal. Cerebrum: No evidence of hemorrhage, acute infarction or mass . Cerebellum and brainstem: No evidence of hemorrhage, acute infarction or mass. Vasculature: Normal. Comments: Bilateral lens surgery.. IMPRESSION: No new CT evidence of acute intracranial pathology. Transcribed By: GERARD Dictated By: HELENA AVILA MD Electronically Authenticated By: HELENA AVILA MD Signed Date/Time: 08/31/17 5135 PROCEDURE: CT ANGIO CHEST TECHNIQUE: Computerized tomographic angiography of the chest was performed after the IV injection of iodinated nonionic contrast including image processing. The image data was postprocessed using 2-dimensional multiplanar reformatted (MPR) and 3-dimensional (MIP and/or volume rendered) techniques. HISTORY: CP, Syncope, elevated dimer COMPARISON: 08/29/2015 FINDINGS: Heart and pericardium: Normal. Thoracic aorta: Normal. Pulmonary vasculature: Normal. Lymph nodes: Suspect small lymph nodes in the hilar areas periaortic region in the 1 x 1.5 centimeter range right suprahilar 1 x 2 centimeter subcarinal 1 x 1 centimeter left hilar area near the pulmonary bifurcation left suprahilar region and left infrahilar region Lungs: Normal. Pleural space: No effusion, thickening, or pneumothorax. Musculoskeletal structures: No significant abnormality. Upper abdominal structures: Mild to moderately enlarged liver with fatty infiltration IMPRESSION: No evidence of PE seen at this time. Mild angela vascular hilar adenopathy Transcribed By: SARAH Dictated By: LESVIA ESTES MD Electronically Authenticated By: LESVIA ESTES MD Signed Date/Time: 08/31/17 382 - Medical Decision Making Patient presents with some chest pain and had a syncopal episode in triage. EKG does not show any STEMI or dysrhythmia. Labs do show a leukocytosis of 19, 000 which may be secondary to infection but none has been found thus far and the patient is usually on chronic steroids. First troponin negative. D-dimer slightly elevated and equivocal at 300+ so CT and gently was done that did not show any PE and just shows some mild adenopathy. CT of the head does not show any bleed, shift, mass or any acute process. The patient has received a few rounds of pain medication and still complains of the chest pain and headache. She had a echocardiogram done about 5 or 6 months ago but it has been about 2 years since she had a stress test. For these reasons, the patient will be presented to the admitting hospitalist, Dr Hamilton, for admission. - Differential Diagnosis SD, PE, Costochondritis, Migraine, Brain bleed, tension headache Critical Care Time: No Critical care attestation.: If time is entered above; I have spent that time in minutes in the direct care of this critically ill patient, excluding procedure time. ED Disposition Clinical Impression: Chest pain Qualifiers: Chest pain type: unspecified Qualified Code(s): R07.9 - Chest pain, unspecified Headache Qualifiers: Headache type: unspecified Headache chronicity pattern: unspecified pattern Intractability: not intractable Qualified Code(s): R51 - Headache Syncope Qualifiers: Syncope type: unspecified Qualified Code(s): R55 - Syncope and collapse Leukocytosis Qualifiers: Leukocytosis type: unspecified Qualified Code(s): D72.829 - Elevated white blood cell count, unspecified Disposition: OP ADMIT IP TO THIS HOSP Is pt being admited?: Yes Does the pt Need Aspirin: Yes Condition: Stable Instructions: Chest Pain (ED), Syncope (ED) Referrals: RACHID KHAN MD [Primary Care Provider] - 3-5 Days Time of Disposition: 19:15
--- NOTE | 2017-08-31 16:27 | Cat Scan Report ---
FINAL REPORT PROCEDURE: CT HEAD/BRAIN WO CON TECHNIQUE: Computerized tomography of the head was performed without contrast material. DLP 1000.91 mGy-cm. HISTORY: Syncope. Headache. COMPARISON: CT scan of the brain dated 02/18/2017. FINDINGS: Skull and scalp: Normal. Paranasal sinuses: Normal. Ventricles and subarachnoid spaces: Normal. Cerebrum: No evidence of hemorrhage, acute infarction or mass . Cerebellum and brainstem: No evidence of hemorrhage, acute infarction or mass. Vasculature: Normal. Comments: Bilateral lens surgery.. IMPRESSION: No new CT evidence of acute intracranial pathology.
[2017-08-31] MEDS ORDERED: DILAUDID ONE (18:32)
--- NOTE | 2017-08-31 18:33 | Cat Scan Report ---
FINAL REPORT PROCEDURE: CT ANGIO CHEST TECHNIQUE: Computerized tomographic angiography of the chest was performed after the IV injection of iodinated nonionic contrast including image processing. The image data was postprocessed using 2-dimensional multiplanar reformatted (MPR) and 3-dimensional (MIP and/or volume rendered) techniques. HISTORY: CP, Syncope, elevated dimer COMPARISON: 08/29/2015 FINDINGS: Heart and pericardium: Normal. Thoracic aorta: Normal. Pulmonary vasculature: Normal. Lymph nodes: Suspect small lymph nodes in the hilar areas periaortic region in the 1 x 1.5 centimeter range right suprahilar 1 x 2 centimeter subcarinal 1 x 1 centimeter left hilar area near the pulmonary bifurcation left suprahilar region and left infrahilar region Lungs: Normal. Pleural space: No effusion, thickening, or pneumothorax. Musculoskeletal structures: No significant abnormality. Upper abdominal structures: Mild to moderately enlarged liver with fatty infiltration IMPRESSION: No evidence of PE seen at this time. Mild angela vascular hilar adenopathy
[2017-08-31] MEDS ORDERED: BABY ASPIRIN PO ONE (19:16)
--- NOTE | 2017-08-31 19:19 | History and Physical Report ---
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 Pt states that she feels like she has an infection. Pt also complained of passing out while waiting for care oin fast track. Pt complains of chronic pain all over her body for the past year. Pt denies fever, chills, palpitations, NVD, unintentional weight loss, night sweats, productive cough, recent ill contacts, leg swelling, calf pain, prolonged travel/immobility, individual/family history of DVT/PE. Pt seen and evaluated in ED and admitted to medical floor. Past History Past Medical History: diabetes, migraines, other (Anxiety, Vogt Koyanagi Kim Syndrome) Past Surgical History: Other (carpal tunnel) Social history: single Family history: no significant family history (reviewed) Medications and Allergies Allergies Allergy/AdvReac Type Severity Reaction Status Date / Time No Known Allergies Allergy Verified 09/14/15 08:51 Home Medications Medication Instructions Recorded Confirmed Last Taken Type Amitriptyline [Elavil] 50 mg PO QHS 09/21/16 08/31/17 04/19/17 History Olanzapine [Zyprexa] 15 mg PO DAILY 04/20/17 08/31/17 04/20/17 History Furosemide [Lasix TAB] 20 mg PO QDAY #10 04/22/17 08/31/17 04/20/17 Rx ALPRAZolam [Xanax TAB] 2 mg PO BID PRN 08/31/17 08/31/17 Unknown History Codeine/Butalbital/ASA/Caffein 1 each PO DAILY PRN 08/31/17 08/31/17 Unknown History [Fiorinal with Codeine #3 Cap] Gabapentin [Neurontin] 300 mg PO BID 08/31/17 08/31/17 Unknown History HYDROcodone/APAP 10-325 [[place] 10 - 325 mg PO DAILY PRN 08/31/17 08/31/17 Unknown History 10-325 mg TAB] Paroxetine HCl [PARoxetine] 40 mg PO DAILY 08/31/17 08/31/17 Unknown History Zolpidem [Ambien] 10 mg PO QHS 08/31/17 08/31/17 Unknown History Review of Systems Constitutional: no weight loss, no weight gain, no fever, no chills Ears, nose, mouth and throat: no ear pain, no ear discharge, no tinnitis, no decreased hearing, no nose pain, no nasal congestion Breasts: no change in shape, no swelling, no mass Cardiovascular: syncope, no chest pain, no orthopnea, no palpitations, no rapid/ irregular heart beat Respiratory: no cough, no cough with sputum, no excessive sputum, no hemoptysis , no shortness of breath Gastrointestinal: no abdominal pain, no nausea, no vomiting, no diarrhea, no constipation Genitourinary Female: no pelvic pain, no flank pain, no menorrhagia, no dysuria , no urinary frequency Menstruation: no currently menstrual, no premenarcheal, no post hysterectomy, no ammenorrhea, no ammenorrhea on BC Rectal: no pain, no incontinence, no bleeding Musculoskeletal: no neck stiffness, no neck pain, no shooting arm pain, no arm numbness/tingling, no low back pain Integumentary: no rash, no pruritis, no redness, no sores Neurological: no head injury, no transient paralysis, no paralysis, no weakness , no parathesias, no numbness, no tingling, no seizures Psychiatric: anxiety, no memory loss, no change in sleep habits, no sleep disturbances, no insomnia, no hypersomnia Endocrine: no cold intolerance, no heat intolerance, no polyphagia, no excessive thirst, no polydipsia, no polyuria, no nocturia Hematologic/Lymphatic: no easy bruising, no easy bleeding, no lymphadenopathy, no lymphedema Allergic/Immunologic: no urticaria, no allergic rhinitis, no wheezing, no persistent infections Exam - Constitutional Vitals: Temp Pulse Resp BP Pulse Ox 98.6 F 90 22 134/73 96 08/31/17 12:10 08/31/17 19:00 08/31/17 19:00 08/31/17 19:00 08/31/17 19:00 General appearance: Present: obese - EENT Eyes: Present: PERRL ENT: hearing intact, clear oral mucosa - Neck Neck: Present: supple, normal ROM - Respiratory Respiratory effort: normal Respiratory: bilateral: CTA - Cardiovascular Heart Sounds: Present: S1 & S2. Absent: rub, click - Extremities Extremities: pulses symmetrical, No edema Peripheral Pulses: within normal limits - Abdominal General gastrointestinal: Present: soft, non-tender, non-distended, normal bowel sounds Female genitourinary: Present: normal - Integumentary Integumentary: Present: clear, warm, dry - Musculoskeletal Musculoskeletal: gait normal, strength equal bilaterally - Psychiatric Psychiatric: appropriate mood/affect, intact judgment & insight - Neurologic Neurologic: CNII-XII intact, moves all extremities Results - Labs CBC & Chem 7: 08/31/17 14:38 08/31/17 14:38 Labs: Abnormal lab results 08/31/17 08/31/17 08/31/17 Range/Units 14:38 14:38 14:38 WBC 19.1 H (4.5-11.0) K/mm3 RDW 16.9 H (13.2-15.2) % [place] # 0.9 H (0.0-0.8) K/mm3 Baso # 0.2 H (0.0-0.1) K/mm3 Seg Neutrophils % 78.2 H (40.0-70.0) % Seg Neutrophils # 15.0 H (1.8-7.7) K/mm3 D-Dimer 358.36 H (0-234) ng/mlDDU Chloride 97.6 L (98-107) mmol/L Creatinine 0.6 L (0.7-1.2) mg/dL Glucose 140 H (65-100) mg/dL Assessment and Plan - Patient Problems (1) Hlfc-Svqhwuhg-Bkrhfp syndrome Current Visit: Yes Status: Chronic Plan to address problem: continue steroid therapy, pain control, outpatient rheumatology f/u. (2) Leukocytosis Current Visit: Yes Status: Acute Qualifiers: Leukocytosis type: unspecified Qualified Code(s): D72.829 - Elevated white blood cell count, unspecified Plan to address problem: suspect secondary to steroids, but will order blood cultures, cbc, and evaluate for source of infection (3) SIRS (systemic inflammatory response syndrome) Current Visit: No Status: Acute Plan to address problem: CBC, Chest X ray, Urinalysis, CT chest, D dimer, serial physical exam to evaluated for source of infection, versus elevated wbc count secondary to chronic steroid use. (4) Diabetes Current Visit: Yes Status: Acute Plan to address problem: ADA diet, insulin, accu check (5) Migraine Current Visit: Yes Status: Acute Plan to address problem: Pain control, supportive care. (6) DVT prophylaxis Current Visit: No Status: Acute
[2017-08-31] MEDS ORDERED: TYLENOL PO PRN (19:22)
[2017-08-31] MEDS ORDERED: PROVENTIL IH PRN (19:22)
[2017-08-31] MEDS ORDERED: ZOFRAN IV PRN (19:22)
[2017-08-31] MEDS ORDERED: MILK OF MAGNESIA PO PRN (19:22)
[2017-08-31] MEDS ORDERED: DULCOLAX PR PRN (19:22)
[2017-08-31] MEDS ORDERED: BUTALBITAL PO PRN (19:23)
[2017-08-31] MEDS ORDERED: ASA PO PRN (19:23)
[2017-08-31] MEDS ORDERED: CAFFEIN PO PRN (19:23)
[2017-08-31] MEDS ORDERED: CODEINE PO PRN (19:23)
[2017-08-31] MEDS ORDERED: TYLENOL PO SCH (20:00)
[2017-08-31] MEDS ORDERED: ELAVIL PO SCH (22:00)
[2017-08-31] MEDS ORDERED: ASPIRIN ONE (22:49)
[2017-08-31] MEDS: CELLCEPT PO SCH (22:57)
[2017-09-01 08:04] VITALS: BP 116/64
[2017-09-01] MEDS: NORCO 7.5/325 PO PRN ×2 (08:52→10:53)
[2017-09-01] MEDS ORDERED: NON-FORMULARY (Olanzapine [Zyprexa] 15 MG) PO SCH (10:00)
[2017-09-01] MEDS ORDERED: PAXIL PO SCH (10:00)
[2017-09-01] MEDS ORDERED: LASIX PO SCH (10:00)
[2017-09-01] MEDS ORDERED: DELTASONE PO SCH (10:00)
[2017-09-01] MEDS: CELLCEPT PO SCH (10:14)
[2017-09-01] MEDS ORDERED: LEVAQUIN PO SCH (11:00)
--- NOTE | 2017-09-01 11:13 | Discharge Summary ---
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 Pt states that she feels like she has an infection. Pt also complained of passing out while waiting for care oin fast track. Pt complains of chronic pain all over her body for the past year. Pt denies fever, chills, palpitations, NVD, unintentional weight loss, night sweats, productive cough, recent ill contacts, leg swelling, calf pain, prolonged travel/immobility, individual/family history of DVT/PE. Pt seen and evaluated in ED and admitted to medical floor. Patient claimed as fever, cough, chills and leukocytosis. Patient was empirically treated with Levaquin. Patient claims she has chest pain but not new and Patient declined stress test. Patient is hemodynamically stable at the time of discharge. Patient was given appropriate medications at time of discharge. Patient will have follow-up with her primary care physician soon. Disposition: - TO HOME OR SELFCARE Time spent for discharge: 31 minutes - Discharge Diagnoses (1) Chest pain Status: Acute Qualifiers: Chest pain type: unspecified Qualified Code(s): R07.9 - Chest pain, unspecified (2) Headache Status: Acute Qualifiers: Headache type: unspecified Headache chronicity pattern: unspecified pattern Intractability: not intractable Qualified Code(s): R51 - Headache (3) Leukocytosis Status: Acute Qualifiers: Leukocytosis type: unspecified Qualified Code(s): D72.829 - Elevated white blood cell count, unspecified (4) Migraine Status: Acute (5) Rvww-Mhywdrjk-Ynhura syndrome Status: Chronic (6) Acute non intractable tension-type headache Status: Acute (7) Autoimmune disease Status: Chronic Core Measure Documentation - Palliative Care Palliative Care/ Comfort Measures: Not Applicable - Core Measures Any of the following diagnoses?: none Exam - Physical Exam Narrative exam: Not in cardiopulmonary distress. The patient appeared well nourished and normally developed. Vital signs as documented. Head exam is unremarkable. No scleral icterus . Neck is without jugular venous distension, thyromegaly, or carotid bruits. Lungs are clear to auscultation. Cardiac exam reveals regular rate and Rhythm. First and second heart sounds normal. No murmurs, rubs or gallops. Abdominal exam reveals normal bowel sounds, no masses, no organomegaly and no aortic enlargement. Extremities are nonedematous and both femoral and pedal pulses are normal. CLOAK ROOM ATTENDANT: Alert and oriented 3. No focal weakness. - Constitutional Vitals: Temp Pulse Resp BP Pulse Ox 99.2 F 89 18 116/64 96 09/01/17 07:43 09/01/17 07:43 09/01/17 10:53 09/01/17 07:43 09/01/17 07:43 Plan Activity: no restrictions Weight Bearing Status: Full Weight Bearing Diet: low fat, low cholesterol Follow up with: RACHID PINEDA MD [Primary Care Provider] - 3-5 Days Prescriptions: guaiFENesin DM [Guaifenesin Dm Syrup] 10 ml PO Q4H PRN #1 bottle PRN Reason: Cough Levofloxacin [Levaquin TAB] 500 mg PO QDAY #7 tablet
[2017-09-02] MEDS ORDERED: Fluarix Quad 2017-2018(36 MOS+ IM ONE (12:00)
== END 2017-09-01 13:40 | disposition home or self-care (01) | DRG 103 ==
LOC: ED 11:57 → 3A 19:22
PROVIDERS: ADMIT Internal Medicine; ATTEND Internal Medicine
DX: G44.209 Tension-type headache, unspecified, not intractable (principal); H20.829 Vogt-Koyanagi syndrome, unspecified eye; E11.9 Type 2 diabetes mellitus without complications; G43.909 Migraine, unspecified, not intractable, without status migrainosus; F41.9 Anxiety disorder, unspecified; D72.829 Elevated white blood cell count, unspecified; F17.200 Nicotine dependence, unspecified, uncomplicated; Z79.899 Other long term (current) drug therapy; Z79.1 Long term (current) use of non-steroidal anti-inflammatories (NSAID)
CPT/HCPCS: 36415; 70450; 71045; 71275; 80053; 84484; 85025; 85379; 87040; 93005; 93010; 96374; J1170; J7512; J7517; Q9967

== ENCOUNTER 2017-11-03 23:46 | Inpatient (IN) | payer MEDICAID ==
[2017-11-04 00:42] LABS: Basophils # (Auto) 0.1 K/mm3 (0.0-0.1); Basophils % (Auto) 0.7 % (0.0-1.8); Eosinophils # (Auto) 0.4 K/mm3 (0.0-0.4); Eosinophils % (Auto) 3.6 % (0.0-4.3); Hematocrit 38.2 % (30.3-42.9); Hemoglobin 12.4 gm/dl (10.1-14.3); Lymphocytes # (Auto) 3.5 K/mm3 (1.2-5.4); Lymphocytes % (Auto) 30.5 % (13.4-35.0); Mean Corpuscular HGB Conc 33 % (30-34); Mean Corpuscular Hemoglobin 28 pg (28-32); Mean Corpuscular Volume 85 fl (79-97); Monocytes # (Auto) 0.8 K/mm3 (0.0-0.8); Monocytes % (Auto) 6.9 % (0.0-7.3); Platelet Count 357 K/mm3 (140-440); Red Cell Distribution Width 15.2 % (13.2-15.2)
[2017-11-04 00:55] LABS: BUN/Creatinine Ratio 10; Blood Urea Nitrogen 6 mg/dL (7-17); Calcium 9.2 mg/dL (8.4-10.2); Hemolysis Index 6
[2017-11-04 01:10] LABS: INR 0.88 (0.87-1.13); Partial Thromboplastin Time 30.6 Sec. (24.2-36.6); Thrombin Time 15.5 Sec. (15.1-19.6)
--- NOTE | 2017-11-04 01:42 | Cat Scan Report ---
FINAL REPORT PROCEDURE: CT HEAD/BRAIN WO CON TECHNIQUE: Computerized tomography of the head was performed without contrast material. HISTORY: neuro deficits < 6hrs or sx present upon awakening COMPARISON: No prior studies are available for comparison. FINDINGS: Skull and scalp: Normal. Paranasal sinuses: Normal. Ventricles and subarachnoid spaces: Normal. Cerebrum: No evidence of hemorrhage, acute infarction or mass . Cerebellum and brainstem: No evidence of hemorrhage, acute infarction or mass. Vasculature: Normal. Comments: None. IMPRESSION: Normal Examination
[2017-11-04] MEDS ORDERED: ASPIRIN PO ONE (01:48)
[2017-11-04] MEDS ORDERED: NORCO 5/325 PO ONE (01:48)
--- NOTE | 2017-11-04 02:07 | Emergency Department Report ---
HPI - General Chief Complaint: Neuro Symptoms/Deficit Time Seen by Provider: 11/04/17 01:01 - HPI HPI: Room 23 The patient is a 42-year-old female presenting with a chief complaint of left- sided numbness weakness and chest pain. The patient states she awakened the morning of 11/02/2017 and noticed the left side of her body (face, upper extremity, trunk, lower extremity) was tingling and weak. The patient states the fullness over the left face was drooping and she had difficulty swallowing. Patient denied ever having dysarthria. The patient states this morning she developed substernal chest pain though sharp and intermittent in nature associated with shortness of breath, nausea/vomiting and diaphoresis. Patient states she also developed a headache. The patient currently gives her headache a score of 8/10. The patient says she does not have chest pain currently. The patient states she's never had a stress test or cardiac catheterization Location: [See above] Duration: [See above] Quality: Headache, numbness, weakness Severity: 8/10 Modifying factors: [see above] Context: [see above] Mode of transportation: [not driving] ED Past Medical Hx - Past Medical History Previous Medical History?: Yes Hx Diabetes: Yes Hx Headaches / Migraines: Yes Hx Psychiatric Treatment: Yes (Panic Attacks/ ANXIETY) Additional medical history: Anxiety. Ugni-Pswvzusi-Yyjsvj syndrome - Surgical History Past Surgical History?: Yes Additional Surgical History: Carpal tunnel surgery on left hand,fibromyalgia - Family History Family history: no significant - Social History Smoking Status: Former Smoker (none 2 weeks) Substance Use Type: None (denies illicit drug use) - Medications Home Medications: Home Medications Medication Instructions Recorded Confirmed Last Taken Type Amitriptyline [Elavil] 50 mg PO QHS 09/21/16 08/31/17 04/19/17 History Olanzapine [Zyprexa] 15 mg PO DAILY 04/20/17 08/31/17 04/20/17 History ALPRAZolam [Xanax TAB] 2 mg PO BID PRN 08/31/17 08/31/17 Unknown History Codeine/Butalbital/ASA/Caffein 1 each PO DAILY PRN 08/31/17 08/31/17 Unknown History [Fiorinal with Codeine #3 Cap] HYDROcodone/APAP 10-325 [[place] 10 - 325 mg PO DAILY PRN 08/31/17 08/31/17 Unknown History 10-325 mg TAB] Paroxetine HCl [PARoxetine] 40 mg PO DAILY 08/31/17 08/31/17 Unknown History Zolpidem [Ambien] 10 mg PO QHS 08/31/17 08/31/17 Unknown History Levofloxacin [Levaquin TAB] 500 mg PO QDAY #7 tablet 09/01/17 Unknown Rx ED Review of Systems ROS: Stated complaint: CHEST PAIN,MIGRAINE,SORE THROAT Other details as noted in HPI Constitutional: diaphoresis Respiratory: shortness of breath Cardiovascular: chest pain Gastrointestinal: nausea, vomiting Neurological: headache, weakness, numbness Physical Exam - Physical Exam Vital Signs: Vital Signs 11/03/17 11/04/17 23:51 00:10 Temperature 98.6 F 98.6 F Pulse Rate 93 H 94 H Respiratory 18 17 Rate Blood Pressure 124/71 124/71 O2 Sat by Pulse 98 98 Oximetry Physical Exam: GENERAL: The patient is well-developed well-nourished female lying on stretcher not appearing to be in acute distress. [] HEENT: Normocephalic. Atraumatic. Extraocular motions are intact. Patient has moist mucous membranes. NECK: Supple. Trachea midline CHEST/LUNGS: Clear to auscultation. There is no respiratory distress noted. HEART/CARDIOVASCULAR: Regular. There is no tachycardia. There is no gallop rub or murmur. ABDOMEN: Abdomen is soft, nontender. Patient has normal bowel sounds. There is no abdominal distention. SKIN: There is no rash. There is no edema. There is no diaphoresis. NEURO: The patient is awake, alert, and oriented. The patient is cooperative. Cranial nerves II through XII grossly intact with exception of slightly decreased sensation on the left V2 distribution. Decreased sensation left lower extremity. There is left pronator drift. Patient's left leg drifts towards the bed and less than 5 seconds when asked to hold it at a 30 angle. The patient has normal speech MUSCULOSKELETAL: There is no evidence of acute injury. NIHSS= 3 LOC a. Alert= 0 Not alert but arousable to minor stimuli=1 Not alert requires repeated or strong stimuli to move= 2 Responds only reflex motor or unresponsive=3 b. asks month and age answers both correctly= 0 answers one correctly= 1 answers neither correctly= 2 Best Gaze normal= 0 abnormal in one or both but forced deviation or total paresis absent= 1 forced deviation or total gaze paresis= 2 Visual no visual loss= 0 partial hemianopia= 1 complete hemianopia= 2 bilateral hemianopia= 3 Facial Palsy normal= 0 minor paralysis= 1 partial paralysis= 2 complete paralysis= 3 Motor Arm no drift= 0 (+)drift before 10 secs but doesnt hit bed= 1 some effort against gravity= 2 no effort against gravity= 3 no movement= 4 Motor leg no drift= 0 (+)drift before 5 secs but doesnt hit bed= 1 drifts to bed before 5 secs= 2 no effort against gravity= 3 no movement= 4 Limb ataxia absent=0 present in one limb= 1 present in two limbs= 2 Sensory normal= 0 (+)mild sensory loss= 1 severe (unaware of being touched)= 2 Best language mild/some loss of fluency= 1 severe= 2 mute= 3 Dysarthria normal= 0 slurs some words= 1 severe/unintelligible= 2 Extinction and Inattention no abnormality= 0 visual, tactile, auditory or personal inattention= 1 profound (doesnt recognize own hand or orients to only one side= 2 ED Course Vital Signs 11/03/17 11/04/17 23:51 00:10 Temperature 98.6 F 98.6 F Pulse Rate 93 H 94 H Respiratory 18 17 Rate Blood Pressure 124/71 124/71 O2 Sat by Pulse 98 98 Oximetry ED Medical Decision Making - Lab Data Result diagrams: 11/04/17 00:28 11/04/17 00:28 Laboratory Tests 11/04/17 11/04/17 11/04/17 00:04 00:28 00:28 WBC 11.4 H RBC 4.50 Hgb 12.4 Hct 38.2 MCV 85 MCH 28 MCHC 33 RDW 15.2 Plt Count 357 Lymph % (Auto) 30.5 [place] % (Auto) 6.9 Eos % (Auto) 3.6 Baso % (Auto) 0.7 Lymph # 3.5 [place] # 0.8 Eos # 0.4 Baso # 0.1 Seg Neutrophils % 58.3 Seg Neutrophils # 6.6 PT 12.4 INR 0.88 APTT 30.6 Thrombin Time 15.5 Sodium Potassium Chloride Carbon Dioxide Anion Gap BUN Creatinine Estimated GFR BUN/Creatinine Ratio Glucose POC Glucose 140 H Calcium Troponin T 11/04/17 00:28 WBC RBC Hgb Hct MCV MCH MCHC RDW Plt Count Lymph % (Auto) [place] % (Auto) Eos % (Auto) Baso % (Auto) Lymph # [place] # Eos # Baso # Seg Neutrophils % Seg Neutrophils # PT INR APTT Thrombin Time Sodium 141 Potassium 3.7 Chloride 99.8 Carbon Dioxide 29 Anion Gap 16 BUN 6 L Creatinine 0.6 L Estimated GFR > 60 BUN/Creatinine Ratio 10 Glucose 146 H POC Glucose Calcium 9.2 Troponin T < 0.010 - EKG Data -: EKG Interpreted by Me EKG shows normal: sinus rhythm Rate: normal - EKG Data When compared to previous EKG there are: previous EKG unavailable Interpretation: other (no ischemic changes seen) - Radiology Data Radiology results: report reviewed (CT head), image reviewed (CT head, chest x- ray) interpreted by me: Chest x-ray-no focal infiltrates, no pneumothorax [facility] [address] [place] [address] Cat Scan Report Signed Patient: MAGDIEL PEPPER MR#: [id number] : 1975 Acct:[id number] Age/Sex: 42 / F ADM Date: 11/03/17 Loc: ED Attending Dr: Ordering Physician: GIL CONTRERAS MD Date of Service: 11/04/17 Procedure(s): CT head/brain wo con Accession Number(s): [id number] cc: GIL CONTRERAS MD FINAL REPORT PROCEDURE: CT HEAD/BRAIN WO CON TECHNIQUE: Computerized tomography of the head was performed without contrast material. HISTORY: neuro deficits lt; 6hrs or sx present upon awakening COMPARISON: No prior studies are available for comparison. FINDINGS: Skull and scalp: Normal. Paranasal sinuses: Normal. Ventricles and subarachnoid spaces: Normal. Cerebrum: No evidence of hemorrhage, acute infarction or mass . Cerebellum and brainstem: No evidence of hemorrhage, acute infarction or mass. Vasculature: Normal. Comments: None. IMPRESSION: Normal Examination Transcribed By: CO Dictated By: MARLY LOVE MD Electronically Authenticated By: MARLY LOVE MD Signed Date/Time: 11/04/17135 DD/ 5 TD/TT: 11/04/17 0136 - Differential Diagnosis CVA, ACS, GERD, pericarditis, complex migraine Critical care attestation.: If time is entered above; I have spent that time in minutes in the direct care of this critically ill patient, excluding procedure time. ED Disposition Clinical Impression: CVA (cerebral vascular accident), Chest pain Disposition: OP ADMIT IP TO THIS HOSP Is pt being admited?: Yes Does the pt Need Aspirin: Yes Condition: Fair Instructions: Chest Pain (ED) Referrals: PRIMARY CARE,MD [Primary Care Provider] - 3-5 Days Time of Disposition: 02:47 (hospitalist paged (Dr Manjarrez))
[2017-11-04] MEDS ORDERED: NITROSTAT SL ONE (02:40)
[2017-11-04] MEDS ORDERED: SODIUM CHLORIDE FLUSH SYRINGE 10 ML IV PRN (04:00)
[2017-11-04] MEDS ORDERED: REGLAN PO PRN (04:00)
[2017-11-04] MEDS ORDERED: PHENERGAN PR PRN (04:00)
[2017-11-04] MEDS ORDERED: ZOFRAN IV PRN (04:00)
[2017-11-04] MEDS ORDERED: TYLENOL PO PRN (04:00)
[2017-11-04] MEDS ORDERED: MILK OF MAGNESIA PO PRN (04:00)
[2017-11-04] MEDS ORDERED: APRESOLINE IV PRN (04:00)
[2017-11-04] MEDS ORDERED: DULCOLAX PR PRN (04:00)
[2017-11-04] MEDS ORDERED: D50W (25GM) Syringe IV PRN (04:06)
[2017-11-04] MEDS ORDERED: KCL 10 MEQ in NACL 0.45% 1000 ML 1,000 ML IV SCH (04:15)
[2017-11-04] MEDS: MORPHINE IV PRN ×4 (04:22→22:52)
--- NOTE | 2017-11-04 05:17 | XRay Report ---
FINAL REPORT PROCEDURE: XR CHEST 1V AP TECHNIQUE: Chest radiograph anteroposterior view. CPT 83374 HISTORY: chest pain COMPARISON: 08/29/2015 FINDINGS: Heart: Normal. Mediastinum/Vessels: Normal. Lungs/Pleural space: Lungs are clear and expanded. There are no infiltrates, effusions or pneumothoraces.. Bony thorax: No acute osseous abnormality. Life support devices: None. IMPRESSION: No acute cardiopulmonary abnormality.
--- NOTE | 2017-11-04 06:24 | History and Physical Report ---
History of Present Illness Date of examination: 11/04/17 Date of admission: 11/04/17 04:00 Chief complaint: Left-sided numbness with weakness History of present illness: Patient is a 42-year-old -[place] female with history of diabetes mellitus, who presented to the ED on account of 4 days history of left-sided numbness with weakness. She had associated left facial drooping, slurred speech , headaches, nausea with vomiting and dizziness. She stated that the symptoms started improving yesterday. She also complained of midsternal denied chest pain of 4 days' duration. She described it as shopping cart, rated 8/10, radiating to the left and constant in duration. She has associated shortness of breath, diaphoresis, and palpitation. No leg swelling, fever, chills, cough , orthopnea or PND. No reported preceding history of trauma. Past History Past Medical History: diabetes, migraines, other (fibromyalgia, panic attack with anxiety disorder, vogt-koyanagi dominique syndrome) Past Surgical History: Other (carpal tunnel surgery on the left hand) Social history: smoking (for 5 years, she stated that she quit 2 weeks ago. She denies alcohol or illicit drug use.) Family history: other (reviewed and noncontributory.) Medications and Allergies Allergies Allergy/AdvReac Type Severity Reaction Status Date / Time No Known Allergies Allergy Verified 09/14/15 08:51 Home Medications Medication Instructions Recorded Confirmed Last Taken Type Amitriptyline [Elavil] 50 mg PO QHS 09/21/16 11/04/17 04/19/17 History Olanzapine [Zyprexa] 15 mg PO DAILY 04/20/17 11/04/17 04/20/17 History ALPRAZolam [Xanax TAB] 2 mg PO BID PRN 08/31/17 11/04/17 Unknown History Codeine/Butalbital/ASA/Caffein 1 each PO DAILY PRN 08/31/17 11/04/17 Unknown History [Fiorinal with Codeine #3 Cap] HYDROcodone/APAP 10-325 [[place] 10 - 325 mg PO DAILY PRN 08/31/17 11/04/17 Unknown History 10-325 mg TAB] Paroxetine HCl [PARoxetine] 40 mg PO DAILY 08/31/17 11/04/17 Unknown History Zolpidem [Ambien] 10 mg PO QHS 08/31/17 11/04/17 Unknown History Levofloxacin [Levaquin TAB] 500 mg PO QDAY #7 tablet 09/01/17 11/04/17 Unknown Rx Active Meds: Active Medications Acetaminophen (Tylenol) 650 mg PO Q4H PRN PRN Reason: Pain, Mild (1-3) Aspirin (Aspirin) 325 mg PO QDAY KENN Bisacodyl (Dulcolax) 10 mg [place] QDAY PRN PRN Reason: Constipation Dextrose (D50w (25gm) Syringe) 50 ml IV PRN PRN PRN Reason: Hypoglycemia Enoxaparin Sodium (Lovenox) 40 mg SUB-Q QDAY KENN Hydralazine HCl (Apresoline) 10 mg IV Q6H PRN PRN Reason: Keep SBP between 160-185 mm Hg Potassium Chloride 10 meq/ (Sodium Chloride) 1,005 mls @ 75 mls/hr IV DIRECT KENN Insulin Human Lispro (Humalog) 0 unit SUB-Q ACHS KENN; Protocol Magnesium Hydroxide (Milk Of Magnesia) 30 ml PO Q4H PRN PRN Reason: Constipation Metoclopramide HCl (Reglan) 10 mg PO Q6H PRN PRN Reason: Nausea And Vomiting Morphine Sulfate (Morphine) 2 mg IV Q4H PRN PRN Reason: Pain, Moderate (4-6) Last Admin: 11/04/17 04:22 Dose: 2 mg Ondansetron HCl (Zofran) 4 mg IV Q8H PRN PRN Reason: N/V unrelieved by Reglan Promethazine HCl (Phenergan) 25 mg [place] Q6H PRN PRN Reason: Nausea And Vomiting Sodium Chloride (Sodium Chloride Flush Syringe 10 Ml) 10 ml IV PRN PRN PRN Reason: LINE FLUSH Zolpidem Tartrate (Ambien) 5 mg PO QHS PRN PRN Reason: Insomnia Review of Systems All systems: negative (except as documented in the HPI, all other systems were reviewed and negative.) Exam - Constitutional Vitals: Temp Pulse Resp BP Pulse Ox 98.6 F 91 H 20 118/74 100 11/04/17 02:21 11/04/17 02:21 11/04/17 04:22 11/04/17 02:21 11/04/17 02:24 General appearance: Present: no acute distress - EENT Eyes: Present: PERRL, EOM intact ENT: hearing intact, clear oral mucosa - Neck Neck: Present: supple, normal ROM - Respiratory Respiratory effort: normal Respiratory: bilateral: CTA - Cardiovascular Rhythm: regular Heart Sounds: Present: S1 & S2. Absent: rub, click - Extremities Extremities: pulses symmetrical, No edema - Abdominal General gastrointestinal: Present: soft, non-tender, non-distended, normal bowel sounds - Integumentary Integumentary: Present: clear, warm, dry - Musculoskeletal Musculoskeletal: left sided weakness - Psychiatric Psychiatric: appropriate mood/affect - Neurologic Neurologic: CNII-XII intact, other (gait unexamined) Results - Labs CBC & Chem 7: 11/04/17 00:28 11/04/17 00:28 Labs: Laboratory Last Values WBC 11.4 K/mm3 (4.5-11.0) H 11/04/17 00:28 RBC 4.50 M/mm3 (3.65-5.03) 11/04/17 00:28 Hgb 12.4 gm/dl (10.1-14.3) 11/04/17 00:28 Hct 38.2 % (30.3-42.9) 11/04/17 00:28 MCV 85 fl (79-97) 11/04/17 00:28 MCH 28 pg (28-32) 11/04/17 00: MCHC 33 % (30-34) 11/04/17 00: RDW 15.2 % (13.2-15.2) 11/04/17 00:28 Plt Count 357 K/mm3 (140-440) 11/04/17 00:28 Lymph % (Auto) 30.5 % (13.4-35.0) 11/04/17 00:28 [place] % (Auto) 6.9 % (0.0-7.3) 11/04/17 00:28 Eos % (Auto) 3.6 % (0.0-4.3) 11/04/17 00:28 Baso % (Auto) 0.7 % (0.0-1.8) 11/04/17 00:28 Lymph # 3.5 K/mm3 (1.2-5.4) 11/04/17 00:28 [place] # 0.8 K/mm3 (0.0-0.8) 11/04/17 00:28 Eos # 0.4 K/mm3 (0.0-0.4) 11/04/17 00:28 Baso # 0.1 K/mm3 (0.0-0.1) 11/04/17 00: Seg Neutrophils % 58.3 % (40.0-70.0) 11/04/17 00: Seg Neutrophils # 6.6 K/mm3 (1.8-7.7) 11/04/17 00: PT 12.4 Sec. (12.2-14.9) 11/04/17 00: INR 0.88 (0.87-1.13) 11/04/17: APTT 30.6 Sec. (24.2-36.6) 11/04/17: Thrombin Time 15.5 Sec. (15.1-19.6) 11/04/17 00:28 Sodium 141 mmol/L (137-145) 11/04/17: Potassium 3.7 mmol/L (3.6-5.0) 11/04/17: Chloride 99.8 mmol/L (98-107) 11/04/17 00: Carbon Dioxide 29 mmol/L (22-30) 11/04/17: Anion Gap 16 mmol/L 11/04/17 00: BUN 6 mg/dL (7-17) L 11/04/17 00: Creatinine 0.6 mg/dL (0.7-1.2) L 11/04/17 00: Estimated GFR > 60 ml/min 11/04/17 00: BUN/Creatinine Ratio 10 % 11/04/17: Glucose 146 mg/dL (65-100) H 11/04/17 00: POC Glucose 140 (70-105) H 11/04/17 00:04 Calcium 9.2 mg/dL (8.4-10.2) 11/04/17 00: Troponin T < 0.010 ng/mL (0.00-0.029) 11/04/17 00:28 Assessment and Plan Assessment and plan: Left-sided paresthesia with weakness -probably secondary to malingering versus acute stroke -Will place patient on TIA/stroke protocol -We will do further investigative testing with MRI brain, echocardiogram and carotid Doppler ultrasound Chest pain, rule out ACS -Will continue serial troponin level monitoring -We will do further investigative testing with NST Riy-sfwwkba-selcdondc diabetes mellitus type 2 -Patient will be placed on SSI Leukocytosis, probably reactive -Will monitor WBC level. Migraines -Resume home meds Panic attacks and anxiety disorder -Resume home meds Prophylaxis -DVT prophylaxis with Lovenox 40 minutes spent coordinating care
[2017-11-04] MEDS: HumaLOG SUB-Q SCH ×4 (07:50→22:15)
--- NOTE | 2017-11-04 09:35 | Progress Note ---
Assessment and Plan Assessment and plan: Left-sided paresthesia with weakness -?malingering versus acute stroke -Will place patient on TIA/stroke protocol -We will do further investigative testing with MRI brain, echocardiogram and carotid Doppler ultrasound -Neurology consultation Chest pain, rule out ACS -Will continue serial troponin level monitoring -Await stress thallium results [id number] diabetes mellitus type 2 -Patient will be placed on SSI -Check hemoglobin A1c Leukocytosis, probably reactive -Will monitor WBC level. -Patient with no other signs of infection Migraines -Resume home meds Panic attacks and anxiety disorder -Resume home meds Prophylaxis -DVT prophylaxis with Lovenox An additional 34 minutes was spent in coordinating care since admission History Interval history: Patient seen and stress lab. No new complaints since admission. Hospitalist Physical - Constitutional Vitals: Temp Pulse Resp BP Pulse Ox 97.6 F 88 18 118/76 98 11/04/17 07:38 11/04/17 07:38 11/04/17 07:38 11/04/17 07:38 11/04/17 07:38 General appearance: Present: no acute distress - EENT Eyes: Present: PERRL, EOM intact ENT: hearing intact, clear oral mucosa, dentition normal - Neck Neck: Present: supple, normal ROM - Respiratory Respiratory effort: normal Respiratory: bilateral: CTA - Cardiovascular Rhythm: regular Heart Sounds: Present: S1 & S2. Absent: gallop, rub - Extremities Extremities: no ischemia, No edema, Full ROM - Abdominal General gastrointestinal: soft, non-tender, non-distended, normal bowel sounds - Integumentary Integumentary: Present: clear, warm, dry - Neurologic Neurologic: CNII-XII intact, moves all extremities Results - Labs CBC & Chem 7: 11/04/17 00:28 11/04/17 00:28 Labs: Laboratory Last Values WBC 11.4 K/mm3 (4.5-11.0) H 11/04/17 00:28 RBC 4.50 M/mm3 (3.65-5.03) 11/04/17 00:28 Hgb 12.4 gm/dl (10.1-14.3) 11/04/17 00:28 Hct 38.2 % (30.3-42.9) 11/04/17 00:28 MCV 85 fl (79-97) 11/04/17 00:28 MCH 28 pg (28-32) 11/04/17 00: MCHC 33 % (30-34) 11/04/17 00: RDW 15.2 % (13.2-15.2) 11/04/17 00: Plt Count 357 K/mm3 (140-440) 11/04/17 00: Lymph % (Auto) 30.5 % (13.4-35.0) 11/04/17 00: [place] % (Auto) 6.9 % (0.0-7.3) 11/04/17: Eos % (Auto) 3.6 % (0.0-4.3) 11/04/17: Baso % (Auto) 0.7 % (0.0-1.8) 11/04/17 00: Lymph # 3.5 K/mm3 (1.2-5.4) 11/04/17 00: [place] # 0.8 K/mm3 (0.0-0.8) 11/04/17 Eos # 0.4 K/mm3 (0.0-0.4) 11/04/17 00: Baso # 0.1 K/mm3 (0.0-0.1) 11/04/17 00: Seg Neutrophils % 58.3 % (40.0-70.0) 11/04/17 00 Seg Neutrophils # 6.6 K/mm3 (1.8-7.7) 11/04/17: PT 12.4 Sec. (12.2-14.9) 11/04/17: INR 0.88 (0.87-1.13) 11/04/17 00: APTT 30.6 Sec. (24.2-36.6) 11/04/17 00: Thrombin Time 15.5 Sec. (15.1-19.6) 11/04/17 00: Sodium 141 mmol/L (137-145) 11/04/17 00: Potassium 3.7 mmol/L (3.6-5.0) 11/04/17 00: Chloride 99.8 mmol/L (98-107) 11/04/17 00: Carbon Dioxide 29 mmol/L (22-30) 11/04/17: Anion Gap 16 mmol/L 11/04/17: BUN 6 mg/dL (7-17) L 11/04/17: Creatinine 0.6 mg/dL (0.7-1.2) L 11/04/17: Estimated GFR > 60 ml/min 11/04/17 BUN/Creatinine Ratio 10 % 11/04/17: Glucose 146 mg/dL (65-100) H 11/04/17: POC Glucose 140 (70-105) H 11/04/17 00: Calcium 9.2 mg/dL (8.4-10.2) 11/04/17: Troponin T < 0.010 ng/mL (0.00-0.029) 11/04/17
[2017-11-04] MEDS ORDERED: LEXISCAN IV ONE ×2 (10:27→10:44)
[2017-11-04] MEDS ORDERED: ZOFRAN ONE (11:27)
[2017-11-04] MEDS ORDERED: NACL 0.9% 500 ML 500 ML IV SCH (14:00)
--- NOTE | 2017-11-04 14:13 | Consultation ---
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 She denies alcohol or illicit drug use.) Family history: other (reviewed and noncontributory.) Medications and Allergies Allergies Allergy/AdvReac Type Severity Reaction Status Date / Time No Known Allergies Allergy Verified 09/14/15 08:51 Home Medications Medication Instructions Recorded Confirmed Last Taken Type Amitriptyline [Elavil] 50 mg PO QHS 09/21/16 11/04/17 04/19/17 History Olanzapine [Zyprexa] 15 mg PO DAILY 04/20/17 11/04/17 04/20/17 History ALPRAZolam [Xanax TAB] 2 mg PO BID PRN 08/31/17 11/04/17 Unknown History Codeine/Butalbital/ASA/Caffein 1 each PO DAILY PRN 08/31/17 11/04/17 Unknown History [Fiorinal with Codeine #3 Cap] HYDROcodone/APAP 10-325 [[place] 10 - 325 mg PO DAILY PRN 08/31/17 11/04/17 Unknown History 10-325 mg TAB] Paroxetine HCl [PARoxetine] 40 mg PO DAILY 08/31/17 11/04/17 Unknown History Zolpidem [Ambien] 10 mg PO QHS 08/31/17 11/04/17 Unknown History Levofloxacin [Levaquin TAB] 500 mg PO QDAY #7 tablet 09/01/17 11/04/17 Unknown Rx Active Meds: Active Medications Acetaminophen (Tylenol) 650 mg PO Q4H PRN PRN Reason: Pain, Mild (1-3) Aspirin (Aspirin) 325 mg PO QDAY KENN Bisacodyl (Dulcolax) 10 mg [place] QDAY PRN PRN Reason: Constipation Dextrose (D50w (25gm) Syringe) 50 ml IV PRN PRN PRN Reason: Hypoglycemia Enoxaparin Sodium (Lovenox) 40 mg SUB-Q QDAY KENN Hydralazine HCl (Apresoline) 10 mg IV Q6H PRN PRN Reason: Keep SBP between 160-185 mm Hg Potassium Chloride 10 meq/ (Sodium Chloride) 1,005 mls @ 75 mls/hr IV DIRECT KENN Sodium Chloride (Nacl 0.9% 500 Ml) 500 mls @ 50 mls/hr IV DIRECT KENN Stop: 11/04/17 23:59 Insulin Human Lispro (Humalog) 0 unit SUB-Q ACHS KENN; Protocol Last Admin: 11/04/17 07:50 Dose: Not Given Magnesium Hydroxide (Milk Of Magnesia) 30 ml PO Q4H PRN PRN Reason: Constipation Metoclopramide HCl (Reglan) 10 mg PO Q6H PRN PRN Reason: Nausea And Vomiting Morphine Sulfate (Morphine) 2 mg IV Q4H PRN PRN Reason: Pain, Moderate (4-6) Last Admin: 11/04/17 13:22 Dose: 2 mg Ondansetron HCl (Zofran) 4 mg IV Q8H PRN PRN Reason: N/V unrelieved by Reglan Last Admin: 11/04/17 11:32 Dose: 4 mg Promethazine HCl (Phenergan) 25 mg [place] Q6H PRN PRN Reason: Nausea And Vomiting Sodium Chloride (Sodium Chloride Flush Syringe 10 Ml) 10 ml IV PRN PRN PRN Reason: LINE FLUSH Zolpidem Tartrate (Ambien) 5 mg PO QHS PRN PRN Reason: Insomnia Physical Examination - Vital Signs Vital Signs: Vital Signs Temp Pulse Resp BP Pulse Ox 98.6 F 93 H 18 124/71 98 11/03/17 23:51 11/03/17 23:51 11/03/17 23:51 11/03/17 23:51 11/03/17 23:51 Results - Laboratory Findings CBC and BMP: 11/04/17 00:28 11/04/17 00:28 Abnormal Lab Findings: Abnormal Labs 11/04/17 11/04/17 11/04/17 00:04 00:28 00:28 WBC 11.4 H BUN 6 L Creatinine 0.6 L Glucose 146 H POC Glucose 140 H Hemoglobin A1c 11/04/17 11/04/17 11/04/17 07:52 10:57 12:33 WBC BUN Creatinine Glucose POC Glucose 136 H 143 H Hemoglobin A1c 7.9 H
[2017-11-04] MEDS: ASPIRIN PO SCH (19:04)
[2017-11-04] MEDS: LOVENOX SUB-Q SCH (19:04)
[2017-11-04] MEDS: AMBIEN PO PRN (21:57)
[2017-11-05 06:18] LABS: Basophils % (Auto) 0.4 % (0.0-1.8); Eosinophils # (Auto) 0.5 K/mm3 (0.0-0.4); Eosinophils % (Auto) 4.9 % (0.0-4.3); Hematocrit 35.7 % (30.3-42.9); Hemoglobin 11.7 gm/dl (10.1-14.3); Lymphocytes # (Auto) 2.6 K/mm3 (1.2-5.4); Lymphocytes % (Auto) 27.2 % (13.4-35.0); Mean Corpuscular HGB Conc 33 % (30-34); Mean Corpuscular Hemoglobin 28 pg (28-32); Mean Corpuscular Volume 85 fl (79-97); Monocytes # (Auto) 0.8 K/mm3 (0.0-0.8); Monocytes % (Auto) 8.7 % (0.0-7.3); Platelet Count 315 K/mm3 (140-440); Red Blood Count 4.19 M/mm3 (3.65-5.03)
[2017-11-05] MEDS: NACL 0.9% 500 ML 500 ML ONE ×2 (06:38→23:24)
[2017-11-05 06:39] LABS: BUN/Creatinine Ratio 8; Blood Urea Nitrogen 4 mg/dL (7-17); Calcium 8.7 mg/dL (8.4-10.2); HDL Cholesterol 40 mg/dL (40-59); Hemolysis Index 1; LDL Cholesterol,Direct 95 mg/dL (50-130)
[2017-11-05] MEDS ORDERED: NACL 0.9% 500 ML 500 ML IV SCH (08:00)
--- NOTE | 2017-11-05 08:39 | Treadmill Report ---
MYOCARDIAL PERFUSION IMAGING REPORT The patient is a 42-year-old female with history of diabetes mellitus who was admitted with neurological symptoms along with chest pain, underwent IV Lexiscan myocardial perfusion imaging. The patient received a technetium pyrophosphate sestamibi at rest and also following vasodilation. Gated wall motion studies were performed post-vasodilation. Post-stress perfusion images showed moderate perfusion deficit in the mid and apical anterior wall, which improves with rest. There is a normal perfusion noted in the rest of the areas. The patient's gated wall motion study showed calculated ejection fraction of 70% with normal wall motion and thickening. Transient ischemic dilation ratio was found to be 0.79. FINAL IMPRESSION: 1. Evidence of ischemia mid/apical anterior wall medium sized and moderate intensity. 2. Normal ejection fraction of 70% noted. JOB# [id number] RADHA/JOSE E
[2017-11-05] MEDS: HumaLOG SUB-Q SCH ×3 (09:17→23:30)
[2017-11-05] MEDS: MORPHINE IV PRN ×2 (09:48→18:37)
--- NOTE | 2017-11-05 09:54 | Consultation ---
CARDIOLOGY CONSULTATION Please refer this letter to Dr. Powers. REASON FOR CONSULTATION: Evaluation of chest pain and abnormal stress nuclear imaging. HISTORY OF PRESENT ILLNESS: A 42-year-old female who was admitted with left-sided numbness including the face and left side of the body of few days' duration. She woke up on the morning of 11/02/2017 with tingling and weakness on the left side of the body. Also, she has some difficulty breathing. She feels like fullness around the neck all the time. She gets short of breath sometimes. She says she has some difficulty with swallowing once in a while, but no nausea or vomiting. In addition, she has some headache. The patient says she is having tightness around the neck for last few days. She gets short of breath. No particular complaints of chest pain. No previous cardiac history of myocardial infarction or congestive heart failure or irregular heartbeat. The patient has history of diabetes mellitus of few years' duration. Similarly of hypertension of few years' duration. In addition, the patient has history of panic attacks and anxiety. Apparently, she has worked [employer] [place]. PAST SURGICAL HISTORY: Included carpal tunnel on the left hand along with history of fibromyalgia. SOCIAL HISTORY: She smoked for 5 years, but quit few weeks ago. Denies any drug abuse or alcohol use. The patient is not . MEDICATIONS: At home included Elavil 50 mg at bedtime, Zyprexa 15 mg daily, Xanax 2 mg b.i.d. p.r.n. in addition to hydrocodone and paroxetine 40 mg daily, Ambien 10 mg at bedtime. Also, she is on Levaquin. REVIEW OF SYSTEMS: Denied any fever or cough, and chills. No history of asthma or emphysema. History of hypertension, diabetes as mentioned above, also smoking, which she quit few years ago. History of panic attacks with anxiety disorder and fibromyalgia. She thought she had a stroke when she had that numbness on the left side of the face and left-sided weakness. She says her stomach hurts and when she eats food, she has some stomach discomfort. She does not do much exercise. No fever or coughing or chills. PHYSICAL EXAMINATION: GENERAL: The patient appears to be comfortable, in no acute distress, well-developed, well-nourished. HEENT: Conjunctivae pink. Sclerae anicteric. NECK: Supple, no JVD. HEART: Regular, probably S4, no S3, no significant murmurs. LUNGS: Clear. ABDOMEN: Benign. EXTREMITIES: Without edema. NEUROLOGIC: Alert, oriented x 3. FINAL IMPRESSION: 1. Shortness of breath and chest pain, etiology not clear. The patient had IV Lexiscan nuclear imaging, which was performed this morning and was found to be abnormal with moderate amount of anterior ischemia. The patient does not have typical angina at this time. However considering the risk factors with abnormal nuclear imaging, recommended cardiac catheterization for definitive diagnosis and treatment. Given the option of medical therapy. Initially, she is reluctant to have catheterization done; however, she decided to proceed with cardiac catheterization. 2. Left-sided paresthesia and weakness, etiology not clear. 3. Diabetes mellitus type 2. 5. Essential hypertension, history of panic attacks and anxiety disorder. History of smoking, but quit few weeks ago; however, she smoked only for a few years. At this time, considering abnormality on the nuclear imaging along with atypical symptoms, recommended cardiac catheterization for definitive diagnosis and the patient is willing to proceed with the same. She is aware of the procedure, potential complications of MO, CVA, cardiac arrhythmia, dye allergy, vascular complications and even . She is willing to have it done. Thank you very much, Dr. Powers for letting us participate in outpatient care. JOB# [id number] RADHA/JOSE E
--- NOTE | 2017-11-05 10:21 | Progress Note ---
Subjective Date of service: 11/05/17 Objective - Constitutional Vitals: Vital Signs - 12hr 11/05/17 07:52 Temperature 99.4 F Pulse Rate 91 H Respiratory 16 Rate Blood Pressure 120/67 O2 Sat by Pulse 96 Oximetry - Labs CBC & Chem 7: 11/05/17 05:43 11/05/17 05:43 Labs: Abnormal lab results 11/04/17 11/04/17 11/04/17 Range/Units 07:52 10:57 12:33 [place] % (Auto) (0.0-7.3) % Eos % (Auto) (0.0-4.3) % Eos # (0.0-0.4) K/mm3 BUN (7-17) mg/dL Creatinine (0.7-1.2) mg/dL Glucose (65-100) mg/dL POC Glucose 136 H 143 H (70-105) Hemoglobin A1c 7.9 H (4-6) % 11/04/17 11/04/17 11/05/17 Range/Units 16:30 22:38 05:43 [place] % (Auto) (0.0-7.3) % Eos % (Auto) (0.0-4.3) % Eos # (0.0-0.4) K/mm3 BUN 4 L (7-17) mg/dL Creatinine 0.5 L (0.7-1.2) mg/dL Glucose 121 H (65-100) mg/dL POC Glucose 130 H 108 H (70-105) Hemoglobin A1c (4-6) % 11/05/17 11/05/17 Range/Units 05:43 06:32 [place] % (Auto) 8.7 H (0.0-7.3) % Eos % (Auto) 4.9 H (0.0-4.3) % Eos # 0.5 H (0.0-0.4) K/mm3 BUN (7-17) mg/dL Creatinine (0.7-1.2) mg/dL Glucose (65-100) mg/dL POC Glucose 129 H (70-105) Hemoglobin A1c (4-6) %
--- NOTE | 2017-11-05 11:03 | Consultation ---
HISTORY OF PRESENT ILLNESS: This is a 42-year-old female that is admitted through the Emergency Room [facility]. The patient is admitted to the hospital with presenting complaints of left-sided weakness, left arm, left face. This has been present for about a week. She has shortness of breath, difficulty walking, had severe profound headache. She has been hospitalized here about 4 months ago for similar problem. At that point, she refused to have a cardiac stress test. She has been on Xanax and Zyprexa therapy as well as high dose Elavil for neuropsychiatric problems, is also taking Codeine 3 times a day and paroxetine. PHYSICAL EXAMINATION: On my examination of the patient, she is alert and appropriate. Neck is supple. Speech is clear. Cranial nerves 2-12 are intact. The patient's pulse rate at this point is 96, blood pressure 120/64. She has left facial weakness, left arm drift. 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 Supple neck. Ocular movements full. Fundi benign. Pupils equal, round, reactive to light. No tremors or asterixis are present. No seizure activity noted. IMPRESSION: New onset of left-sided weakness of the face, arm, and leg with hemimotor, hemisensory deficit. She is on a great many psychiatric medications. There may be some functional overlay, hard to tell at this point. This may be the reason for her refusing the testing previously. PLAN: To get MRI scan of the brain, get further EEG. JOB# [id number] GILBERTO/JOSE E
[2017-11-05] MEDS ORDERED: ASPIRIN ONE (12:03)
[2017-11-05] MEDS ORDERED: NACL 0.9% 500 ML 500 ML ONE (12:03)
[2017-11-05] MEDS: ASPIRIN PO SCH (12:10)
[2017-11-05] MEDS ORDERED: XYLOCAINE 2% INFILTRATI ONE (12:17)
[2017-11-05] MEDS ORDERED: HEPARIN/NS 5000 UNIT/500ML(CATH LAB) 1,000 ML IR ONE (12:17)
[2017-11-05] MEDS ORDERED: HEPARIN 10,000 UNITS/10 ML ONE (12:17)
[2017-11-05] MEDS ORDERED: CALAN ONE (12:17)
[2017-11-05] MEDS ORDERED: NITROGLYCERIN SYRINGE 0 ML ONE (12:18)
[2017-11-05] MEDS: VERSED ONE ×2 (12:33→12:38)
[2017-11-05] MEDS: SUBLIMAZE ONE ×2 (12:33→12:38)
[2017-11-05] MEDS ORDERED: VERSED ONE (12:50)
[2017-11-05] MEDS ORDERED: SUBLIMAZE ONE (12:50)
--- NOTE | 2017-11-05 13:46 | Progress Note ---
Assessment and Plan Assessment: Chest pain Dyspnea Normal coronaries Mild LV dysfunction Left-sided paresthesia and weakness - unclear etiology; per neuro, TIAs suspected HTN DM H/o anxiety with anxiety attacks Former tobacco use Plan: S/p LHC this AM which revealed patent coronaries. Echo reviewed - EF 40-45%, no intracardiac shunt seen on bubble study, no apparent significant valvular abnormalities. Currently stable cardiac status. Pt may discharge home this afternoon following completion of post-cath order set. Recommend follow up in our office with Dr. Connor within 1-2 weeks of hospital discharge ([phone]). The patient has been seen in conjunction with Dr. Connor who agrees with the assessment and plan of care. Subjective Date of service: 11/05/17 Principal diagnosis: cp; SOB Interval history: pt for [facility] today. no current cardiac complaints. Objective Last Vital Signs Temp 99 F 11/05/17 13:28 Pulse 76 11/05/17 13:20 Resp 15 11/05/17 13:20 BP 111/63 11/05/17 13:20 Pulse Ox 98 11/05/17 13:20 - Physical Examination General: No Apparent Distress HEENT: Positive: PERRL, Normocephaly, Mucus Membranes Moist Neck: Positive: neck supple, trachea midline Cardiac: Positive: Reg Rate and Rhythm, S1/S2 Lungs: Positive: clear to auscultation Neuro: Positive: Grossly Intact, Cranial Nerve 2-12 Intact Abdomen: Positive: Soft. Negative: Tender Musculoskeletal: No Fluid Collection, No Pain, Normal Range of Motion Extremities: Absent: edema - Labs and Meds Lipids 11/05/17 Range/Units 05:43 Triglycerides 144 (2-149) mg/dL Cholesterol 156 (50-199) mg/dL HDL Cholesterol 40 (40-59) mg/dL Cholesterol/HDL Ratio 3.90 % CBC 11/05/17 Range/Units 05:43 WBC 9.5 (4.5-11.0) K/mm3 RBC 4.19 (3.65-5.03) M/mm3 Hgb 11.7 (10.1-14.3) gm/dl Hct 35.7 (30.3-42.9) % Plt Count 315 (140-440) K/mm3 Lymph # 2.6 (1.2-5.4) K/mm3 [place] # 0.8 (0.0-0.8) K/mm3 Eos # 0.5 H (0.0-0.4) K/mm3 Baso # 0.0 (0.0-0.1) K/mm3 Comprehensive Metabolic Panel 11/05/17 Range/Units 05:43 Sodium 142 (137-145) mmol/L Potassium 3.9 (3.6-5.0) mmol/L Chloride 101.8 (98-107) mmol/L Carbon Dioxide 29 (22-30) mmol/L BUN 4 L (7-17) mg/dL Creatinine 0.5 L (0.7-1.2) mg/dL Glucose 121 H (65-100) mg/dL Calcium 8.7 (8.4-10.2) mg/dL - Imaging and Cardiology EKG: report reviewed, image reviewed Echo: report reviewed Cardiac cath: report reviewed - Telemetry EKG Rhythm: Sinus Rhythm
[2017-11-05] MEDS: LOVENOX SUB-Q SCH (15:00)
--- NOTE | 2017-11-05 17:15 | Cardiac Catherization Report ---
The patient is a 42-year-old -Armenian female with history of diabetes, hypertension, and was admitted with left-sided facial numbness along with tightness in the neck and she underwent IV Lexiscan nuclear imaging, which showed medium sized mild anterior defect. Because of her multiple risk factors with atypical symptoms, she underwent cardiac catheterization for definitive diagnosis and treatment after obtaining informed consent. The patient was brought to the catheterization laboratory in a fasting condition. The right wrist area and forearm thoroughly cleansed with Betadine solution. Sterile drapes were applied. Local anesthesia was achieved using 2% Xylocaine. Right radial artery puncture was made using 21-gauge arterial puncture needle. Subsequently, 5-Yi sheath was introduced. The patient received 3000 units of intravenous heparin and 5 mg of intra-arterial verapamil. Subsequently, using multipurpose catheter, left ventriculogram was performed using multipurpose catheter and also left coronary angiograms were obtained using multipurpose catheter. Subsequently, JR4 catheter was used to obtain angiograms of the right coronary artery. RCA is arising somewhat high and anteriorly from the aorta. However, the right coronary artery engaged and angiogram showed coronary artery to be angiographically smooth and normal. It is to be mentioned that she has pain throughout the procedure, probably from radial spasm in spite of adequate sedation. Procedure was uncomplicated. No untoward complications were noted. Following findings were noted: HEMODYNAMICS: 1. Opening aortic pressure. 2. Right coronary artery arises somewhat high anteriorly. Codominant vessel angiographically smooth and normal. 3. Left coronary artery arises normally from left coronary cusp, left main, LAD, which curves around the apex. Circumflex artery and its branch are angiographically smooth and normal. 4. Left ventriculogram done in CARDONA projection using hand injection shows normal sized left ventricle with normal contractility. Overall, ejection fraction was found to be normal. FINAL IMPRESSION: 1. Normal sized left ventricle with normal contractility. 2. Essentially normal coronary anatomy with right coronary artery codominant vessel arising somewhat anterior and high from the aorta. Procedure was uncomplicated. At this time, the patient does not have any significant coronary artery disease, will be continued on risk factor modification. The patient after evaluation for moderate sedation was sedated with IV Versed and fentanyl requiring 3 mg of Versed and 100 mcg of fentanyl. The patient was sedated from 12:40 noon to 12:55 noon. No untoward complications were noted. At the end of the procedure, the patient is alert, oriented x 3 and hemodynamically stable. JOB# [id number] RADHA/JOSE E
[2017-11-05] MEDS ORDERED: XANAX PO PRN (18:26)
--- NOTE | 2017-11-05 18:46 | Progress Note ---
Assessment and Plan Left-sided paresthesia with weakness -Possible TIA vs stroke -F/u with MRI brain, echocardiogram and carotid Doppler ultrasound ASA, Statin -Neurology consultation Chest pain, rule out ACS -Normal coronaries on cath after abnormal stress test Qca-ihggckj-lcbcocwuf diabetes mellitus type 2 -Patient will be placed on SSI -Consistent CHO diet Leukocytosis, probably reactive -Normal WBC level. -Patient with no other signs of infection Migraines -Resume home meds Panic attacks and anxiety disorder -Commnece pt on Alprazolam Prophylaxis -DVT prophylaxis with Lovenox Subjective Date of service: 11/05/17 Principal diagnosis: cp; SOB, left sided weakness Interval history: still has left sided weakness. No more chest pain Objective - Exam Narrative Exam: Constitutional: Well-nourished well-developed. In no distress Head: Normocephalic atraumatic Eyes: Pupils are equal round and reactive to light Nose: No enlarged turbinates, no septal deviation. Mouth: Moist mucous membranes. Neck: Supple no thyromegaly. No bruit. No JVD Heart: Regular rate and rhythm, S1-S2 abnormal. No rubs murmurs or gallop Lungs: Clear to auscultation bilaterally no rales or rhonchi Abdomen: Soft, nontender. Bowel sound are present. Extremities: No edema no cyanosis and no clubbing. Neuro: Alert oriented Oriented x3. Leftr sided weakness. Skin: No rashes no hyperemic spots Psychiatry: Euthymic. Calm. - Constitutional Vitals: Vital Signs - 12hr 11/05/17 11/05/17 11/05/17 07:52 10:35 12:00 Temperature 99.4 F 99.1 F Pulse Rate 91 H 79 Respiratory 16 16 Rate Blood Pressure 120/67 Blood Pressure 128/56 [Left] O2 Sat by Pulse 96 98 98 Oximetry 11/05/17 11/05/17 11/05/17 13:20 13:28 16:38 Temperature 99 F 98.7 F Pulse Rate 76 76 Respiratory 15 20 Rate Blood Pressure 111/63 118/75 Blood Pressure [Left] O2 Sat by Pulse 98 98 Oximetry - Labs CBC & Chem 7: 11/05/17 05:43 11/05/17 05:43 Labs: Abnormal lab results 11/04/17 11/05/17 11/05/17 Range/Units 22:38 05:43 05:43 [place] % (Auto) 8.7 H (0.0-7.3) % Eos % (Auto) 4.9 H (0.0-4.3) % Eos # 0.5 H (0.0-0.4) K/mm3 BUN 4 L (7-17) mg/dL Creatinine 0.5 L (0.7-1.2) mg/dL Glucose 121 H (65-100) mg/dL POC Glucose 108 H (70-105) 11/05/17 11/05/17 Range/Units 06:32 16:41 [place] % (Auto) (0.0-7.3) % Eos % (Auto) (0.0-4.3) % Eos # (0.0-0.4) K/mm3 BUN (7-17) mg/dL Creatinine (0.7-1.2) mg/dL Glucose (65-100) mg/dL POC Glucose 129 H 120 H (70-105)
[2017-11-05] MEDS: AMBIEN PO PRN (21:01)
[2017-11-06 07:22] VITALS: BP 113/73
[2017-11-06] MEDS: HumaLOG SUB-Q SCH ×2 (07:41→12:21)
[2017-11-06] MEDS: LOVENOX SUB-Q SCH (09:26)
[2017-11-06] MEDS: MORPHINE IV PRN (09:39)
--- NOTE | 2017-11-06 11:18 | Discharge Summary ---
Providers - Providers Date of Admission: 11/04/17 04:00 Attending physician: SPENCER DIGGS MD 11/04/17 04:00 Occupational Therapy Evaluate and Treat [CONS] Routine Comment: Reason For Exam: Neuro deficits Physical Therapy Evaluation and Treat [CONS] Routine Comment: Reason For Exam: Neuro deficits 11/04/17 04:01 Speech Therapy Evaluation and Treat [CONS] Routine Reason For Exam: swallow eval 11/04/17 09:36 Consult to Physician [CONS] Routine Comment: Consulting Provider: JAZMINE FLANNERY Physician Instructions: Reason For Exam: TIA 11/05/17 13:52 Consult to Cardiac Rehabilitation [CONS] Routine Reason For Exam: Cardiac Rehab Evaluation Primary care physician: FIRER KILN Hospitalization Reason for admission: possible stroke Condition: Fair Pertinent studies: CT head no acute findings MRI refusse Disposition: DC/TX-06 HOME UNDER HOME HL Time spent for discharge: 31 minutes - Discharge Diagnoses (1) Yeast infection Status: Acute (2) CVA (cerebral vascular accident) Status: Acute (3) Chest pain Status: Acute Core Measure Documentation - Palliative Care Palliative Care/ Comfort Measures: Not Applicable - Core Measures Any of the following diagnoses?: stroke (suspected) - Stroke Discharge Requirements Statin for LDL = or >70 mg/dl on DC: Yes Anticoag for atrial fib/atrial flutter: Not Applicable Antithrombotic for ischemic stroke: Yes Exam - Constitutional Vitals: Temp Pulse Resp BP Pulse Ox 98.5 F 81 19 113/73 98 11/06/17 07:15 11/06/17 07:15 11/06/17 07:15 11/06/17 07:15 11/06/17 07:15 Plan Activity: advance as tolerated Weight Bearing Status: Full Weight Bearing Diet: low cholesterol, diabetic Special Instructions: physical therapy Additional Instructions: follow [facility] Follow up with: DAYO SANTANA MD [Primary Care Provider] - 7 Days DOUG BELTRE MD [Staff Physician] - 7 Days JAZMINE FLANNERY MD [Staff Physician] - 14 Days Prescriptions: AtorvaSTATin [Lipitor] 40 mg PO QHS #30 tablet Aspirin [Aspirin BABY CHEW TAB] 81 mg PO QDAY #30 tab.chew Fluconazole [Diflucan TAB] 150 mg PO ONCE #1 tablet
--- NOTE | 2017-11-07 08:23 | Vascular Lab Report ---
CAROTID DUPLEX STUDY: RIGHT PSVEDV CCA PROX:9823 CCA DIST:8327 ICA PROX:16368 ICA MID:38001 ICA DIST:8938 ECA: 8111 VERT: 49 21 LEFT PSVEDV CCA PROX:56365 CCA DIST:8628 ICA PROX:7527 ICA MID:97203 ICA DIST:9746 ECA: 8614 VERT: 54 18 REASON FOR EXAM: Stroke. COMMENTS ON THE RIGHT: Doppler frequency analysis is consistent with 16 to 49 percent diameter reduction of the internal carotid artery. Minimal amount of plaque is seen. The common carotid artery is patent. The external carotid artery is patent. The vertebral artery has antegrade flow. COMMENTS ON THE LEFT: Doppler frequency analysis is consistent with 16 to 49 percent diameter reduction of the internal carotid artery. Minimal amount of plaque is seen. The common carotid artery is patent. The external carotid artery is patent. The vertebral artery has antegrade flow. IMPRESSION: Less than 50% diameter reduction in the internal carotid arteries bilaterally.
== END 2017-11-06 13:30 | disposition home health service (06) | DRG 286 ==
LOC: ED 23:46 → 3A 11-04 04:00
PROVIDERS: ADMIT Internal Medicine; ATTEND Internal Medicine
PROC: 4A023N7 Measurement of Cardiac Sampling and Pressure, Left Heart, Percutaneous Approach (ICD-10-PCS; principal; 2017-11-05)
PROC: B2111ZZ Fluoroscopy of Multiple Coronary Arteries using Low Osmolar Contrast (ICD-10-PCS; 2017-11-05)
PROC: B2151ZZ Fluoroscopy of Left Heart using Low Osmolar Contrast (ICD-10-PCS; 2017-11-05)
DX: R07.9 Chest pain, unspecified (principal); I63.9 Cerebral infarction, unspecified; G81.94 Hemiplegia, unspecified affecting left nondominant side; R20.2 Paresthesia of skin; E11.8 Type 2 diabetes mellitus with unspecified complications; D72.829 Elevated white blood cell count, unspecified; G43.909 Migraine, unspecified, not intractable, without status migrainosus; F41.0 Panic disorder [episodic paroxysmal anxiety]; B37.9 Candidiasis, unspecified; F17.200 Nicotine dependence, unspecified, uncomplicated; I10 Essential (primary) hypertension; I51.9 Heart disease, unspecified; Z79.899 Other long term (current) drug therapy; R29.703 NIHSS score 3
CPT/HCPCS: 36415; 70450; 71045; 78452; 80048; 80061; 82962; 83036; 84484; 85025; 85610; 85670; 85730; 93005; 93010; 93017; 93306; 93458; 93880; 96374; A9270-GY; A9502; C1894; J1644; J1650; J2250; J2270; J2405; J2785; J3010; J3480; J7040; Q9967

== ENCOUNTER 2018-07-05 19:05 | Inpatient (IN) | payer MEDICAID ==
[2018-07-05 19:33] LABS: Basophils # (Auto) 0.1 K/mm3 (0.0-0.1); Eosinophils # (Auto) 0.4 K/mm3 (0.0-0.4); Eosinophils % (Auto) 3.2 % (0.0-4.3); Hematocrit 33.9 % (30.3-42.9); Hemoglobin 11.9 gm/dl (10.1-14.3); Lymphocytes # (Auto) 4.1 K/mm3 (1.2-5.4); Lymphocytes % (Auto) 28.8 % (13.4-35.0); Mean Corpuscular HGB Conc 35 % (30-34); Mean Corpuscular Volume 85 fl (79-97); Monocytes # (Auto) 0.8 K/mm3 (0.0-0.8); Monocytes % (Auto) 5.8 % (0.0-7.3); Platelet Count 280 K/mm3 (140-440); Red Cell Distribution Width 15.8 % (13.2-15.2)
[2018-07-05 21:15] LABS: BUN/Creatinine Ratio 14; Blood Urea Nitrogen 10 mg/dL (7-17); Calcium 8.9 mg/dL (8.4-10.2); Hemolysis Index 13
[2018-07-05] MEDS ORDERED: SUBLIMAZE IV ONE (22:52)
[2018-07-05] MEDS ORDERED: ZOFRAN IV ONE (22:52)
[2018-07-05] MEDS ORDERED: SOLU-Medrol IV ONE (23:05)
--- NOTE | 2018-07-05 23:13 | Emergency Department Report ---
HPI - General Chief Complaint: Chest Pain Time Seen by Provider: 07/05/18 22:38 - HPI HPI: Room 1 The patient is a 42-year-old male presenting with a chief complaint of chest pain headache and blurred vision. The patient has a history of Dglr-Bwmzbkvd-C arada syndrome and states 2 days ago she feels as though she was having a flare. Patient states 2 days ago she developed a headache with nausea. Patient states yesterday she developed substernal chest pain described as a dull pressure associated with shortness of breath, nausea/vomiting and diaphoresis. Patient states yesterday she also developed blurred vision consistent with her BPH flare. Patient currently gives her chest pain a score of 5-6/10 headache score of 10/10. Location: [See above] Duration: [See above] Quality: [See above] Severity: [See above] Modifying factors: [see above] Context: [see above] Mode of transportation: [not driving] ED Past Medical Hx - Past Medical History Previous Medical History?: Yes Hx Diabetes: Yes Hx Headaches / Migraines: Yes Hx Psychiatric Treatment: Yes (Panic Attacks/ ANXIETY) Additional medical history: Anxiety. Ukzd-Lkplcryk-Obiyxi syndrome - Surgical History Past Surgical History?: Yes Additional Surgical History: Carpal tunnel surgery on left hand,fibromyalgia - Family History Family history: no significant - Social History Smoking Status: Current Every Day Smoker (1/3 pack per day) Substance Use Type: None (denies illicit drug use) - Medications Home Medications: Home Medications Medication Instructions Recorded Confirmed Last Taken Type ALPRAZolam [Xanax TAB] 2 mg PO BID PRN 08/31/17 02/14/18 Unknown History Codeine/Butalbital/ASA/Caffein 1 each PO DAILY PRN 08/31/17 02/14/18 Unknown History [Fiorinal with Codeine #3 Cap] HYDROcodone/APAP 10-325 [[place] 10 - 325 mg PO DAILY PRN 08/31/17 02/14/18 Unknown History 10-325 mg TAB] PARoxetine HCl [PARoxetine] 40 mg PO DAILY 08/31/17 02/14/18 Unknown History Zolpidem [Ambien] 10 mg PO QHS 08/31/17 02/14/18 Unknown History Aspirin [Aspirin BABY CHEW TAB] 81 mg PO QDAY #30 tab.chew 11/06/17 02/14/18 Unknown Rx AtorvaSTATin [Lipitor] 40 mg PO QHS #30 tablet 11/06/17 02/14/18 Unknown Rx Famotidine [Pepcid] 20 mg PO BID #60 tablet 02/15/18 Unknown Rx Ibuprofen 400 mg PO TID PRN #20 tablet 02/15/18 Unknown Rx ED Review of Systems ROS: Stated complaint: CHEST PAIN/HEADACHE/BLUR VISION Other details as noted in HPI Constitutional: diaphoresis Eyes: vision change ENT: denies: throat pain Respiratory: shortness of breath Cardiovascular: chest pain Endocrine: no symptoms reported Gastrointestinal: nausea, vomiting Genitourinary: denies: dysuria Musculoskeletal: denies: back pain Neurological: headache Physical Exam - Physical Exam Vital Signs: Vital Signs 07/05/18 07/05/18 07/05/18 19:16 22:45 22:57 Temperature 99.6 F Pulse Rate 105 H 90 Respiratory 16 18 16 Rate Blood Pressure 137/73 Blood Pressure 147/79 [Right] O2 Sat by Pulse 99 100 Oximetry Physical Exam: GENERAL: The patient is well-developed well-nourished female lying on stretcher not appearing to be in acute distress. [] HEENT: Normocephalic. Atraumatic. Extraocular motions are intact. Patient has moist mucous membranes. NECK: Supple. No meningitic signs are noted. Trachea midline CHEST/LUNGS: Clear to auscultation. There is no respiratory distress noted. HEART/CARDIOVASCULAR: Regular. There is no tachycardia. There is no gallop rub or murmur. ABDOMEN: Abdomen is soft, nontender. Patient has normal bowel sounds. There is no abdominal distention. SKIN: There is no rash. There is no edema. There is no diaphoresis. NEURO: The patient is awake, alert, and oriented. The patient is cooperative. The patient has normal speech MUSCULOSKELETAL: There is no evidence of acute injury. ED Course Vital Signs 07/05/18 07/05/18 07/05/18 19:16 22:45 22:57 Temperature 99.6 F Pulse Rate 105 H 90 Respiratory 16 18 16 Rate Blood Pressure 137/73 Blood Pressure 147/79 [Right] O2 Sat by Pulse 99 100 Oximetry ED Medical Decision Making - Lab Data Result diagrams: 07/05/18 19:24 07/05/18 19:24 Laboratory Tests 07/05/18 07/05/18 07/05/18 19:24 19:24 22:44 WBC 14.1 H RBC 4.00 Hgb 11.9 Hct 33.9 MCV 85 MCH 30 MCHC 35 H RDW 15.8 H Plt Count 280 Lymph % (Auto) 28.8 [place] % (Auto) 5.8 Eos % (Auto) 3.2 Baso % (Auto) 1.0 Lymph # 4.1 [place] # 0.8 Eos # 0.4 Baso # 0.1 Seg Neutrophils % 61.2 Seg Neutrophils # 8.6 H D-Dimer Sodium 140 Potassium 3.7 Chloride 100.2 Carbon Dioxide 25 Anion Gap 19 BUN 10 Creatinine 0.7 Estimated GFR > 60 BUN/Creatinine Ratio 14 Glucose 130 H Calcium 8.9 Troponin T < 0.010 < 0.010 07/05/18 23:00 WBC RBC Hgb Hct MCV MCH MCHC RDW Plt Count Lymph % (Auto) [place] % (Auto) Eos % (Auto) Baso % (Auto) Lymph # Travis # Eos # Baso # Seg Neutrophils % Seg Neutrophils # D-Dimer 273.17 H Sodium Potassium Chloride Carbon Dioxide Anion Gap BUN Creatinine Estimated GFR BUN/Creatinine Ratio Glucose Calcium Troponin T - EKG Data -: EKG Interpreted by Ks EKG shows normal: sinus rhythm Rate: tachycardia (106 bpm) - EKG Data When compared to previous EKG there are: previous EKG unavailable Interpretation: other (no ischemic changes seen) - Radiology Data Radiology results: report reviewed (CT head, CT chest), image reviewed (CT head, CT chest) [place] [address] Cat Scan Report Signed Patient: MAGDIEL PEPPER MR#: [id number] : 1975 Acct:[id number] Age/Sex: 42 / F ADM Date: 07/05/18 Loc: ED Attending Dr: Ordering Physician: GIL CONTRERAS MD Date of Service: 07/05/18 Procedure(s): CT angio chest Accession Number(s): [id number] cc: GIL CONTRERAS MD FINAL REPORT PROCEDURE: CT ANGIO CHEST TECHNIQUE: Computerized tomographic angiography of the chest was performed after the IV injection of iodinated nonionic contrast including image processing. The image data was postprocessed using 2- dimensional multiplanar reformatted (MPR) and 3-dimensional (MIP and/or volume rendered) techniques. HISTORY: chest pain, shortness of breath COMPARISON: 02/14/2018 FINDINGS: Heart and pericardium: Normal. Thoracic aorta: Normal. Pulmonary vasculature: There is no evidence of pulmonary arterial emboli. Lymph nodes: No enlarged thoracic lymph nodes. Lungs: The lungs are clear. No infiltrate, effusion or pneumothorax. Central airway is patent. Pleural space: No effusion, thickening, or pneumothorax. Musculoskeletal structures: No significant abnormality. Upper abdominal structures: No significant abnormality. IMPRESSION: Normal Examination Transcribed By: [facility] Dictated By: PAT GORMAN MD Electronically Authenticated By: PAT GORMAN MD Signed Date/Time: 07/06/18146 DD/ 8 TD/TT: 07/06/18148 [facility] [address] [place] [address] Cat Scan Report Signed Patient: MAGDIEL PEPPER MR#: [id number] : 1975 Acct:[id number] Age/Sex: 42 / F ADM Date: 07/05/18 Loc: ED Attending Dr: Ordering Physician: GIL CONTRERAS MD Date of Service: 07/05/18 Procedure(s): CT head/brain wo con Accession Number(s): [id number] cc: GIL CONTRERAS MD FINAL REPORT PROCEDURE: CT HEAD/BRAIN WO CON TECHNIQUE: Computerized tomography of the head was performed without contrast material. HISTORY: headache COMPARISON: No prior studies are available for comparison. FINDINGS: Skull and scalp: Normal. Paranasal sinuses: Normal. Ventricles and subarachnoid spaces: Normal. Cerebrum: No evidence of hemorrhage, acute infarction or mass . Cerebellum and brainstem: No evidence of hemorrhage, acute infarction or mass. Vasculature: Normal. Comments: None. IMPRESSION: There is no evidence of an acute intracranial process Transcribed By: [facility] Dictated By: PAT GORMAN MD Electronically Authenticated By: PAT GORMAN MD Signed Date/Time: 07/05/182355 DD/ 57 TD/TT: 07/05/182357 - Differential Diagnosis PE, ACS, pericarditis, GERD, VKH flare, ICH Critical care attestation.: If time is entered above; I have spent that time in minutes in the direct care of this critically ill patient, excluding procedure time. ED Disposition Clinical Impression: Chest pain, Shortness of breath Disposition: OP ADMIT IP TO THIS HOSP Is pt being admited?: Yes Does the pt Need Aspirin: Yes Condition: Fair Instructions: Chest Pain (ED) Referrals: PRIMARY CARE,MD [Primary Care Provider] - 3-5 Days Time of Disposition: 01:52 (hospitalist paged (Dr. Barbara Oliva))
--- NOTE | 2018-07-05 23:56 | Cat Scan Report ---
FINAL REPORT PROCEDURE: CT HEAD/BRAIN WO CON TECHNIQUE: Computerized tomography of the head was performed without contrast material. HISTORY: headache COMPARISON: No prior studies are available for comparison. FINDINGS: Skull and scalp: Normal. Paranasal sinuses: Normal. Ventricles and subarachnoid spaces: Normal. Cerebrum: No evidence of hemorrhage, acute infarction or mass . Cerebellum and brainstem: No evidence of hemorrhage, acute infarction or mass. Vasculature: Normal. Comments: None. IMPRESSION: There is no evidence of an acute intracranial process
--- NOTE | 2018-07-06 01:47 | Cat Scan Report ---
FINAL REPORT PROCEDURE: CT ANGIO CHEST TECHNIQUE: Computerized tomographic angiography of the chest was performed after the IV injection of iodinated nonionic contrast including image processing. The image data was postprocessed using 2-dim ensional multiplanar reformatted (MPR) and 3-dimensional (MIP and/or volume rendered) techniques. HISTORY: chest pain, shortness of breath COMPARISON: 02/14/2018 FINDINGS: Heart and pericardium: Normal. Thoracic aorta: Normal. Pulmonary vasculature: There is no evidence of pulmonary arterial emboli. Lymph nodes: No enlarged thoracic lymph nodes. Lungs: The lungs are clear. No infiltrate, effusion or pneumothorax. Central airway is patent. Pleural space: No effusion, thickening, or pneumothorax. Musculoskeletal structures: No significant abnormality. Upper abdominal structures: No significant abnormality. IMPRESSION: Normal Examination
[2018-07-06] MEDS ORDERED: ASPIRIN PO ONE (01:52)
[2018-07-06 08:10] VITALS: BP 127/55
[2018-07-06] MEDS ORDERED: LEXISCAN IV ONE ×2 (08:15→09:33)
[2018-07-06] MEDS ORDERED: AFLURIA QUAD 2018-2019 SYRINGE IM ONE (12:00)
[2018-07-06] MEDS ORDERED: CAFFEIN PO PRN (13:13)
[2018-07-06] MEDS ORDERED: NORCO 10/325 PO PRN ×2 (13:13→13:18)
[2018-07-06] MEDS ORDERED: ALPRAZOLAM 1 MG PO PRN (13:13)
[2018-07-06] MEDS ORDERED: BUTALBITAL PO PRN (13:13)
[2018-07-06] MEDS ORDERED: AMBIEN PO PRN (13:13)
[2018-07-06] MEDS ORDERED: CODEINE PO PRN (13:13)
[2018-07-06] MEDS ORDERED: ASA PO PRN (13:13)
[2018-07-06] MEDS ORDERED: NON-FORMULARY (Paroxetine Hcl [Paroxetine] 40 MG) PO SCH (13:15)
[2018-07-06] MEDS ORDERED: PEPCID PO SCH (14:00)
[2018-07-06] MEDS ORDERED: BABY ASPIRIN PO SCH (14:00)
[2018-07-06] MEDS ORDERED: ZOFRAN IV PRN (15:47)
[2018-07-06] MEDS ORDERED: PAXIL PO SCH (17:00)
[2018-07-06] MEDS ORDERED: GLUCOPHAGE PO SCH (17:00)
--- NOTE | 2018-07-06 17:35 | History and Physical Report ---
History of Present Illness Date of examination: 07/06/18 Date of admission: 07/06/18 01:59 Chief complaint: chest pains History of present illness: Patient is a 42-year-old black woman with a history of type 2 dm, fibromyalgia, anxiety disorder, migraines and VKH (Ouqx-Vfkrnphd-Wvwsmt) syndrome who presents to [facility] ED with chest pains, headache and blurred vision. The Chest pains is dull, intermittent, moderate, nonradiating pressure x 2 says associated with sob, nausea without aggravating or relieving factors. Patient states yesterday she developed blurred vision consistent with her VKH flare. Patient currently her headaches are typical migraine PMH: as hpi PSH: carpel tunnel repair SH: no tob/etoh/drugs FH: hypertension ROS: Constitutional: denies: fever ENT: denies: throat or neck pain Respiratory: denies: cough, shortness of breath Cardiovascular: + chest pain Endocrine: denies unexplained weight loss or gain Gastrointestinal: denies: abdominal pain, nausea Genitourinary: denies: dysuria Rectal: denies no incontinence, no bleeding, no itching, no discharge Musculoskeletal: denies swelling, myaglia, muscle weakness Skin: denies: rash Neurological: + headache Hematological/Lymphatic: denies: easy bleeding or easy bruising Allergic/Immunologic: no urticaria, no allergic rhinitis, no anaphylaxis Psych: denies sadness or hopelessness, SI/HI, +anxiety Gen: WDWN, NAD, Awake, Alert, Orientated HEENT: NCAT, EOMI, PERRL, OP Clear Neck: supple, no adenopathy, no thyromegaly, no JVD CVS/Heart: RRR, normal S1S2, pulses present bilaterally Chest/Lungs: CTA B, Symmetrical chest expansion, good air entry bilaterally, r eproducible same chest wall tenderness with touch GI/Abdomen: soft, NTND, good bowel sounds, no guarding or rebound /Bladder: no suprapubic tenderness, no CVA or paraspinal tenderness Extermity/Skin: no c/c/e, no obvious rash MSK: FROM x 4 Neuro: CN 2-12 grossly intact, no new focal deficits Psych: calm Medications and Allergies Allergies Allergy/AdvReac Type Severity Reaction Status Date / Time No Known Allergies Allergy Verified 09/14/15 08:51 Home Medications Medication Instructions Recorded Confirmed Last Taken Type ALPRAZolam [Xanax TAB] 2 mg PO BID PRN 08/31/17 02/14/18 Unknown History Codeine/Butalbital/ASA/Caffein 1 each PO DAILY PRN 08/31/17 02/14/18 Unknown History [Fiorinal with Codeine #3 Cap] HYDROcodone/APAP 10-325 [[place] 10 - 325 mg PO DAILY PRN 08/31/17 02/14/18 Unknown History 10-325 mg TAB] PARoxetine HCl [PARoxetine] 40 mg PO DAILY 08/31/17 02/14/18 Unknown History Zolpidem [Ambien] 10 mg PO QHS 08/31/17 02/14/18 Unknown History Aspirin [Aspirin BABY CHEW TAB] 81 mg PO QDAY #30 tab.chew 11/06/17 02/14/18 Unknown Rx AtorvaSTATin [Lipitor] 40 mg PO QHS #30 tablet 11/06/17 02/14/18 Unknown Rx Famotidine [Pepcid] 20 mg PO BID #60 tablet 02/15/18 Unknown Rx Ibuprofen 400 mg PO TID PRN #20 tablet 02/15/18 Unknown Rx Active Meds: Active Medications Acetaminophen/Hydrocodone Bitart ([place] 10/325) 1 each PO BID PRN PRN Reason: Pain , Severe (7-10) Last Admin: 07/06/18 14:20 Dose: 1 each Documented by: Alprazolam (Xanax) 1 mg PO QHS PRN PRN Reason: Anxiety Aspirin (Baby Aspirin) 81 mg PO QDAY [facility] Last Admin: 07/06/18 14:20 Dose: 81 mg Documented by: Atorvastatin Calcium (Lipitor) 40 mg PO QHS [facility] Famotidine (Pepcid) 20 mg PO BID [facility] Last Admin: 07/06/18 14:20 Dose: 20 mg Documented by: Metformin HCl (Glucophage) 500 mg PO BIDDIAB [facility] Last Admin: 07/06/18 17:03 Dose: 500 mg Documented by: Miscellaneous Medication (Codeine/Butalbital/Asa/Caffein [Fiorinal With Codeine #3 Cap]) 1 each PO DAILY PRN PRN Reason: Pain Ondansetron HCl (Zofran) 4 mg IV Q4H PRN PRN Reason: Nausea And Vomiting Last Admin: 07/06/18 17:16 Dose: 4 mg Documented by: Paroxetine HCl (Paxil) 40 mg PO DAILY KENN Last Admin: 07/06/18 17:10 Dose: 40 mg Documented by: Zolpidem Tartrate (Ambien) 10 mg PO QHS PRN PRN Reason: Sleep Exam - Constitutional Vitals: Temp Pulse Resp BP Pulse Ox 99.0 F 112 H 18 127/55 96 07/06/18 08:04 07/06/18 08:04 07/06/18 08:04 07/06/18 08:04 07/06/18 08:04 Results - Labs CBC & Chem 7: 07/05/18 19:24 07/05/18 19:24 Labs: Abnormal lab results 07/05/18 07/05/18 07/05/18 Range/Units 19:24 19:24 23:00 WBC 14.1 H (4.5-11.0) K/mm3 MCHC 35 H (30-34) % RDW 15.8 H (13.2-15.2) % Seg Neutrophils # 8.6 H (1.8-7.7) K/mm3 D-Dimer 273.17 H (0-234) ng/mlDDU Glucose 130 H (65-100) mg/dL Assessment and Plan Patient is a 42-year-old black woman with a history of type 2 dm, fibromyalgia, anxiety disorder, migraines and VKH (Jaus-Motzdajl-Lexdys) syndrome who presents to [facility] ED with chest pains, headache and blurred vision. The Chest pains is dull, intermittent, moderate, nonradiating pressure x 2 says associated with sob, nausea without aggravating or relieving factors. Patient states yesterday she developed blurred vision consistent with her VKH flare. Patient currently her headaches are typical migraine -Chest pains, costochondritis most likely, pt has been lifting weights for fitness, stress test negative -Blurry vision associated with VKH: needs outpatient followup with her doctors -Migraine pain management. 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
--- NOTE | 2018-07-06 17:36 | Discharge Summary ---
Providers - Providers Date of Admission: 07/06/18 01:59 Date of discharge: 07/06/18 Attending physician: MARJORIE BAILEY Primary care physician: ELECTROTYPER Hospitalization Condition: Stable Hospital course: Patient is a 42-year-old black woman with a history of type 2 dm, fibromyalgia, anxiety disorder, migraines and VKH (Lkgv-Pivpxdjc-Vinemy) syndrome who presents to [facility] ED with chest pains, headache and blurred vision. The Chest pains is dull, intermittent, moderate, nonradiating pressure x 2 says associated with sob, nausea without aggravating or relieving factors. Patient states yesterday she developed blurred vision consistent with her VKH flare. Patient currently her headaches are typical migraine. Patient also gives a history of productive yellow cough. -Chest pains, acute bronchtis with costochondritis most likely, pt has been lifting weights for fitness, stress test negative, give ceftin -Blurry vision associated with VKH: needs outpatient followup with her doctors -Migraine pain management. 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 Disposition: DC-01 TO HOME OR SELFCARE Time spent for discharge: 35 minutes Core Measure Documentation - Palliative Care Palliative Care/ Comfort Measures: Not Applicable - Core Measures Any of the following diagnoses?: none - VTE Discharge Requirements Deep Vein Thrombosis/Pulmonary Embolism Present on Admission: No Has pt received <5 days of overlap therapy or INR<2.0: No Anticoagulant overlap therapy prescribed at discharge: No Contraindication No Overlap Therapy order at DC: Not Indicated Exam - Physical Exam Narrative exam: Gen: WDWN, NAD, Awake, Alert, Orientated HEENT: NCAT, EOMI, PERRL, OP Clear Neck: supple, no adenopathy, no thyromegaly, no JVD CVS/Heart: RRR, normal S1S2, pulses present bilaterally Chest/Lungs: CTA B, Symmetrical chest expansion, good air entry bilaterally, reproducible same chest wall tenderness with touch GI/Abdomen: soft, NTND, good bowel sounds, no guarding or rebound /Bladder: no suprapubic tenderness, no CVA or paraspinal tenderness Extermity/Skin: no c/c/e, no obvious rash MSK: FROM x 4 Neuro: CN 2-12 grossly intact, no new focal deficits Psych: calm - Constitutional Vitals: Temp Pulse Resp BP Pulse Ox 99.0 F 112 H 18 127/55 96 07/06/18 08:04 07/06/18 08:04 07/06/18 08:04 07/06/18 08:04 07/06/18 08:04 Plan Activity: other (no strenous activity unless cleared by pcp) Diet: low salt Follow up with: PRIMARY CARE, [Primary Care Provider] - 3-5 Days Prescriptions: cefUROXime [Ceftin] 500 mg PO BID #14 tablet
[2018-07-06] MEDS ORDERED: XANAX PO PRN (22:00)
== END 2018-07-06 18:20 | disposition home or self-care (01) | DRG 206 ==
LOC: ED 19:05 → 4A 07-06 01:59
PROVIDERS: ADMIT Internal Medicine; ATTEND Internal Medicine
DX: M94.0 Chondrocostal junction syndrome [Tietze] (principal); J20.9 Acute bronchitis, unspecified; H20.829 Vogt-Koyanagi syndrome, unspecified eye; E11.9 Type 2 diabetes mellitus without complications; G43.909 Migraine, unspecified, not intractable, without status migrainosus; F41.9 Anxiety disorder, unspecified; F17.210 Nicotine dependence, cigarettes, uncomplicated; M79.7 Fibromyalgia; Z79.82 Long term (current) use of aspirin
CPT/HCPCS: 36415; 70450; 71275; 78452; 80048; 84484; 85025; 85379; 87116; 90686; 93005; 93010; 93017; 99406; G0378; A9502; J2405; J2785; J2930; J3010; Q9967

== ENCOUNTER 2021-02-18 21:54 | Emergency (ER) | payer BC, MEDICAID ==
[2021-02-18 22:58] VITALS: BP 142/71
[2021-02-18 23:53] LABS: Basophils % (Auto) 0.3 % (0.0-1.8); Eosinophils # (Auto) 0.4 K/mm3 (0.0-0.4); Eosinophils % (Auto) 2.9 % (0.0-4.3); Hematocrit 37.6 % (30.3-42.9); Hemoglobin 12.8 gm/dl (10.1-14.3); Lymphocytes % (Auto) 29.9 % (13.4-35.0); Mean Corpuscular HGB Conc 34 % (30-34); Mean Corpuscular Volume 87 fl (79-97); Monocytes # (Auto) 0.8 K/mm3 (0.0-0.8); Monocytes % (Auto) 5.8 % (0.0-7.3); Platelet Count 296 K/mm3 (140-440); Red Blood Count 4.33 M/mm3 (3.65-5.03); Red Cell Distribution Width 16.1 % (13.2-15.2)
[2021-02-19 00:16] LABS: Alanine Aminotransferase 21 units/L (7-56); Albumin 4.4 g/dL (3.9-5); BUN/Creatinine Ratio 14; Blood Urea Nitrogen 11 mg/dL (7-17); Calcium 9.3 mg/dL (8.4-10.2); Hemolysis Index 2
--- NOTE | 2021-02-19 01:04 | XRay Report ---
CHEST 2 VIEWS INDICATION / CLINICAL INFORMATION: chest pain X 2 DAYS. FINDINGS: SUPPORT DEVICES: None. HEART / MEDIASTINUM: No significant abnormality. LUNGS / PLEURA: No significant pulmonary or pleural abnormality. No pneumothorax. ADDITIONAL FINDINGS: No significant additional findings. IMPRESSION: 1. No acute findings. Signer Name: Manuel Espinal MD Signed: 02/19/2021 12:59 AM Workstation Name: [id number]
--- NOTE | 2021-02-20 17:19 | Electrocardiograph Report ---
[facility] Test Date: 2021-02-18 Test Time: 23:01:41 Pat Name: MAGDIEL PEPPER Department: Room: Gender: F Manager Solar: JEFFERSON : 1975 Requested By: ED DOC Order Number: [id number] Reading MD: Suze Pollack Measurements Intervals [place] Rate: 83 P: 65 MN: 169 QRS: 0 QRSD: 87 T: QT: 369 QTc: 434 Interpretive Statements Sinus rhythm Probable left atrial enlargement Indeterminate axis Possible anteroseptal infarct, old Nonspecific T abnormalities, inferior leads No previous ECG available for comparison Electronically Signed On 02-20-2021 17:19:20 EDT by Suze Pollack
== END 2021-02-19 07:27 ==
LOC: ED 21:54
DX: R50.9 Fever, unspecified (principal); Z53.21 Procedure and treatment not carried out due to patient leaving prior to being seen by health care provider
CPT/HCPCS: 36415; 71046; 80053; 84484; 85025; 93005

== ENCOUNTER 2022-01-06 19:57 | Emergency (ER) | payer BC ==
[2022-01-06] MEDS ORDERED: FAMOTIDINE 20 MG/2 ML INJ IV ONE (23:45)
[2022-01-06] MEDS ORDERED: ONDANSETRON 4 MG/2 ML INJ IV ONE (23:45)
[2022-01-06] MEDS ORDERED: MORPHINE 4 MG/1 ML INJ IV ONE (23:45)
[2022-01-07 00:55] LABS: Alanine Aminotransferase 24 units/L (7-56); Albumin 3.8 g/dL (3.9-5); Blood Urea Nitrogen 9 mg/dL (7-17); Calcium 9.6 mg/dL (8.4-10.2); Hemolysis Index 6
[2022-01-07 00:56] LABS: BUN/Creatinine Ratio 15
[2022-01-07 01:51] LABS: Basophils % (Auto) 0.2 % (0.0-1.8); Eosinophils # (Auto) 0.4 K/mm3 (0.0-0.4); Eosinophils % (Auto) 3.4 % (0.0-4.3); Hematocrit 35.3 % (30.3-42.9); Hemoglobin 11.7 gm/dl (10.1-14.3); Lymphocytes # (Auto) 3.1 K/mm3 (1.2-5.4); Lymphocytes % (Auto) 25.6 % (13.4-35.0); Mean Corpuscular HGB Conc 33 % (30-34); Mean Corpuscular Volume 87 fl (79-97); Monocytes # (Auto) 0.7 K/mm3 (0.0-0.8); Platelet Count 264 K/mm3 (140-440); Red Blood Count 4.08 M/mm3 (3.65-5.03); Red Cell Distribution Width 15.3 % (13.2-15.2)
--- NOTE | 2022-01-07 01:53 | Cat Scan Report ---
CT ABDOMEN AND PELVIS WITH CONTRAST INDICATION / CLINICAL INFORMATION: ABDOMINAL PAIN. TECHNIQUE: Axial CT images were obtained through the abdomen and pelvis after Omnipaque 300, 100 cc I V contrast. All CT scans at this location are performed using CT dose reduction for ALARA by means o f automated exposure control. COMPARISON: None available. FINDINGS: LOWER CHEST: No significant abnormality. LIVER: Mild diffuse fatty infiltration. GALLBLADDER: No significant abnormality. BILE DUCTS: No significant abnormality. PANCREAS: No significant abnormality. SPLEEN: No significant abnormality. ADRENALS: No significant abnormality. RIGHT KIDNEY / URETER: No significant abnormality. LEFT KIDNEY / URETER: No significant abnormality. STOMACH / SMALL BOWEL: No significant abnormality. COLON: No significant abnormality. APPENDIX: No significant abnormality. PERITONEUM: No free fluid. No free air. No fluid collection. LYMPH NODES: No significant adenopathy. VASCULAR STRUCTURES: No significant abnormality. URINARY BLADDER: No significant abnormality. REPRODUCTIVE ORGANS: Adenomyosis versus fibroid disease of the uterus. Pedunculated partially calcifi ed lesion along the posterior aspect of the uterus measuring 4.7 cm. ADDITIONAL FINDINGS: Small fat-containing umbilical hernia. SKELETAL SYSTEM: No significant abnormality. IMPRESSION: 1. Negative for obstruction or localized inflammation. 2. Abnormal appearance to the uterus compatible with diffuse fibroid disease or adenomyosis. 3. Calcified lesion posterior to the uterus just to the left of midline at the cul-de-sac. Peduncula helio fibroid versus calcified ovarian lesion. Signer Name: Glen Toscano MD Signed: 01/07/2022 1:49 AM Workstation Name: [id number]
--- NOTE | 2022-01-07 02:07 | XRay Report ---
CHEST 1 VIEW 01/07/2022 12:56 AM INDICATION / CLINICAL INFORMATION: dyspnea. COMPARISON: 02/19/2021. FINDINGS: SUPPORT DEVICES: None. HEART / MEDIASTINUM: No significant abnormality. LUNGS / PLEURA: No significant pulmonary or pleural abnormality. No pneumothorax. ADDITIONAL FINDINGS: No significant additional findings. IMPRESSION: No acute abnormality. Signer Name: Glen Toscano MD Signed: 01/07/2022 2:03 AM Workstation Name: [id number]
--- NOTE | 2022-01-07 02:08 | XRay Report ---
LEFT FOOT 3 VIEWS INDICATION / CLINICAL INFORMATION: foot pain s/p fall. COMPARISON: None available. FINDINGS: BONES / JOINT(S): No acute fracture or subluxation. No significant arthritis. SOFT TISSUES: No significant abnormality. ADDITIONAL FINDINGS: None. Signer Name: Glen Toscano MD Signed: 01/07/2022 2:04 AM Workstation Name: [id number]
[2022-01-07 04:58] LABS: RBC,Urine < 1.0 /HPF (0.0-6.0)
[2022-01-07 05:03] LABS: Bilirubin,Urine Negative (Negative); Blood,Urine Negative (Negative); Color,Urine Yellow (Yellow)
[2022-01-07 05:04] LABS: Urobilinogen,Urine 0.2 mg/dL (<2.0); WBC,Urine < 1.0 /HPF (0.0-6.0)
--- NOTE | 2022-01-07 05:18 | Emergency Department Report ---
ED Abdominal Pain HPI - General Chief Complaint: Abdominal Pain Stated Complaint: SOB/ STOMACH PAINS Source: patient Mode of arrival: Ambulatory Limitations: No Limitations - History of Present Illness Initial Comments: Patient is a 46-year-old -Trist[place] female with a history of the Esof-Cygnmndd-Jerjod syndrome, anxiety, panic attacks, depression and migraine headaches presents to the ED with complaint of acute onset persistent diffuse abdominal pain, nausea and vomiting for the last 2 weeks. Patient also complains of exertional shortness of breath but states this is chronic. Patient also complains of left foot pain for the last 1 week which has gotten worse in the last 2 days with any movement. Patient denies diarrhea, dizziness, syncope, dysuria, urinary frequency and urgency, chest pain, fever, chills, cough, sore throat, headache, hematuria, vaginal bleeding or vaginal discharge, low back pain, numbness and tingling or weakness of upper and lower extremities bilaterally or vision changes. MD Complaint: abdominal pain (Diffuse), other (Left foot pain) -: week(s) (2) Location: diffuse Radiation: L flank, R flank, bilateral flank, back (Low back) Migration to: no migration Severity scale (0 -10): 8 Quality: cramping, sharp Consistency: constant Improves With: nothing Worsens With: movement Associated Symptoms: denies other symptoms, nausea, other (Left foot pain). denies: vomiting, diarrhea, fever, chills, constipation, dysuria, hematemesis, hematochezia, melena, anorexia, syncope Treatments Prior to Arrival: NSAIDs - Related Data Home Medications Medication Instructions Recorded Confirmed Last Taken ALPRAZolam [Xanax TAB] 2 mg PO BID PRN 08/31/17 02/14/18 Unknown Codeine/Butalbital/ASA/Caffein 1 each PO DAILY PRN 08/31/17 02/14/18 Unknown [Fiorinal with Codeine #3 Cap] HYDROcodone/APAP 10-325 [[place] 10 - 325 mg PO DAILY PRN 08/31/17 02/14/18 Unknown 10-325 mg TAB] PARoxetine HCL [PARoxetine] 40 mg PO DAILY 08/31/17 02/14/18 Unknown Zolpidem (Nf) [Ambien (Nf)] 10 mg PO QHS 08/31/17 02/14/18 Unknown Previous Rx's Medication Instructions Recorded Last Taken Type Aspirin [Aspirin BABY CHEW TAB] 81 mg PO QDAY #30 tab.chew 11/06/17 Unknown Rx AtorvaSTATin [Lipitor] 40 mg PO QHS #30 tablet 11/06/17 Unknown Rx Ibuprofen [Ibuprofen 400] 400 mg PO TID PRN #20 tablet 02/15/18 Unknown Rx cefUROXime [Ceftin] 500 mg PO BID #14 tablet 07/06/18 Unknown Rx Dicyclomine [Bentyl] 20 mg PO Q6H PRN #30 tablet 01/07/22 Unknown Rx Famotidine [Pepcid] 20 mg PO BID #60 tablet 01/07/22 Unknown Rx Ibuprofen [Motrin] 800 mg PO Q8HR PRN #30 tablet 01/07/22 Unknown Rx Ondansetron [Zofran Odt] 4 mg PO Q8HR PRN #15 tab.rapdis 01/07/22 Unknown Rx Allergies Allergy/AdvReac Type Severity Reaction Status Date / Time No Known Allergies Allergy Verified 09/14/15 08:51 ED Review of Systems ROS: Stated complaint: SOB/ STOMACH PAINS Other details as noted in HPI Constitutional: denies: chills, fever Eyes: denies: eye pain, eye discharge, vision change ENT: denies: ear pain, throat pain Respiratory: SOB with exertion. denies: cough, wheezing Cardiovascular: denies: chest pain, palpitations Endocrine: no symptoms reported Gastrointestinal: abdominal pain, nausea, vomiting. denies: diarrhea Genitourinary: denies: urgency, dysuria, discharge Musculoskeletal: arthralgia (Left foot pain). denies: back pain, joint swelling Skin: denies: rash, lesions Neurological: denies: headache, weakness, paresthesias Psychiatric: denies: anxiety, depression Hematological/Lymphatic: denies: easy bleeding, easy bruising ED Past Medical Hx - Past Medical History Previous Medical History?: Yes Hx Hypertension: No Hx Heart Attack/AMI: No Hx Congestive Heart Failure: No Hx Diabetes: No Hx Deep Vein Thrombosis: No Hx Pulmonary Embolism: No Hx GERD: No Hx Liver Disease: No Hx Renal Disease: No Hx Sickle Cell Disease: No Hx Arthritis: No Hx Headaches / Migraines: Yes Hx Seizures: No Hx Kidney Stones: No Hx Psychiatric Treatment: Yes (Panic Attacks/ ANXIETY) Hx Asthma: No Hx COPD: No Hx Tuberculosis: No Hx Dementia: No Hx HIV: No Additional medical history: Anxiety. Kkyx-Slahvzvv-Pxwgrj syndrome - Surgical History Past Surgical History?: Yes Hx Coronary Stent: No Hx Open Heart Surgery: No Hx Pacemaker: No Hx Internal Defibrillator: No Hx Cholecystectomy: No Hx Appendectomy: No Hx Breast Surgery: No Additional Surgical History: Carpal tunnel surgery on left hand,fibromyalgia - Social History Smoking Status: Never Smoker - Medications Home Medications: Home Medications Medication Instructions Recorded Confirmed Last Taken Type ALPRAZolam [Xanax TAB] 2 mg PO BID PRN 08/31/17 02/14/18 Unknown History Codeine/Butalbital/ASA/Caffein 1 each PO DAILY PRN 08/31/17 02/14/18 Unknown History [Fiorinal with Codeine #3 Cap] HYDROcodone/APAP 10-325 [[place] 10 - 325 mg PO DAILY PRN 08/31/17 02/14/18 Unknown History 10-325 mg TAB] PARoxetine HCL [PARoxetine] 40 mg PO DAILY 08/31/17 02/14/18 Unknown History Zolpidem (Nf) [Ambien (Nf)] 10 mg PO QHS 08/31/17 02/14/18 Unknown History Aspirin [Aspirin BABY CHEW TAB] 81 mg PO QDAY #30 tab.chew 11/06/17 02/14/18 Unknown Rx AtorvaSTATin [Lipitor] 40 mg PO QHS #30 tablet 11/06/17 02/14/18 Unknown Rx Ibuprofen [Ibuprofen 400] 400 mg PO TID PRN #20 tablet 02/15/18 Unknown Rx cefUROXime [Ceftin] 500 mg PO BID #14 tablet 07/06/18 Unknown Rx Dicyclomine [Bentyl] 20 mg PO Q6H PRN #30 tablet 01/07/22 Unknown Rx Famotidine [Pepcid] 20 mg PO BID #60 tablet 01/07/22 Unknown Rx Ibuprofen [Motrin] 800 mg PO Q8HR PRN #30 tablet 01/07/22 Unknown Rx Ondansetron [Zofran Odt] 4 mg PO Q8HR PRN #15 tab.rapdis 01/07/22 Unknown Rx ED Physical Exam - General Limitations: No Limitations General appearance: alert, in no apparent distress - Head Head exam: Present: atraumatic, normocephalic, normal inspection - Eye Eye exam: Present: normal appearance, PERRL, EOMI Pupils: Present: normal accommodation - ENT ENT exam: Present: normal exam, normal orophraynx, mucous membranes moist, TM's normal bilaterally, normal external ear exam - Neck Neck exam: Present: normal inspection, full ROM. Absent: tenderness - Respiratory Respiratory exam: Present: normal lung sounds bilaterally. Absent: respiratory distress, wheezes, rales, rhonchi, chest wall tenderness, accessory muscle use, decreased breath sounds - Cardiovascular Cardiovascular Exam: Present: normal rhythm, tachycardia, normal heart sounds. Absent: systolic murmur, diastolic murmur, rubs, gallop - GI/Abdominal GI/Abdominal exam: Present: soft, tenderness (Diffuse), normal bowel sounds. Absent: guarding, rebound, hyperactive bowel sounds, hypoactive bowel sounds, organomegaly, mass - Extremities Exam Extremities exam: Present: normal inspection, full ROM, tenderness (Palpable left lateral foot tenderness), normal capillary refill. Absent: pedal edema, joint swelling, calf tenderness - Back Exam Back exam: Present: normal inspection, full ROM. Absent: tenderness, CVA tenderness (R), CVA tenderness (L), muscle spasm, paraspinal tenderness, vertebral tenderness - Neurological Exam Neurological exam: Present: alert, oriented X3, CN II-XII intact, normal gait, reflexes normal - Psychiatric Psychiatric exam: Present: normal affect, normal mood - Skin Skin exam: Present: warm, dry, intact, normal color. Absent: rash ED Course Vital Signs 01/06/22 01/06/22 01/06/22 21:08 23:08 23:15 Temperature 99.3 F Pulse Rate 101 H Respiratory 18 Rate Blood Pressure 135/83 144/77 O2 Sat by Pulse 96 99 98 Oximetry 01/06/22 01/06/22 01/07/22 23:31 23:45 00:00 Temperature Pulse Rate Respiratory Rate Blood Pressure 133/68 139/64 145/61 O2 Sat by Pulse 98 98 97 Oximetry 01/07/22 01/07/22 01/07/22 00:15 00:24 00:31 Temperature Pulse Rate 89 Respiratory 16 Rate Blood Pressure 145/61 125/47 145/61 O2 Sat by Pulse 97 97 97 Oximetry 01/07/22 01/07/22 00:45 00:47 Temperature 97.9 F Pulse Rate Respiratory 15 Rate Blood Pressure 132/48 O2 Sat by Pulse 97 98 Oximetry ED Medical Decision Making - Lab Data Result diagrams: 01/07/22 02:00 01/06/22 23:51 - Radiology Data Radiology results: report reviewed, image reviewed [facility] [address] [place] [address] Cat Scan Report Signed Patient: MAGDIEL PEPPER MR#: [id number] : 1975 Acct:[id number] Age/Sex: 46 / F ADM Date: 01/06/22 Loc: ED Attending Dr: Ordering Physician: SEDRICK MAYER Date of Service: 01/06/22 Procedure(s): CT abdomen pelvis w con Accession Number(s): [id number] cc: SEDRICK MAYER CT ABDOMEN AND PELVIS WITH CONTRAST INDICATION / CLINICAL INFORMATION: ABDOMINAL PAIN. TECHNIQUE: Axial CT images were obtained through the abdomen and pelvis after Omnipaque 300, 100 cc [address]. All CT scans at this location are performed using CT dose reduction for ALARA by means of automated exposure control. COMPARISON: None available. FINDINGS: LOWER CHEST: No significant abnormality. LIVER: Mild diffuse fatty infiltration. GALLBLADDER: No significant abnormality. BILE DUCTS: No significant abnormality. PANCREAS: No significant abnormality. SPLEEN: No significant abnormality. ADRENALS: No significant abnormality. RIGHT KIDNEY / URETER: No significant abnormality. LEFT KIDNEY / URETER: No significant abnormality. STOMACH / SMALL BOWEL: No significant abnormality. COLON: No significant abnormality. APPENDIX: No significant abnormality. PERITONEUM: No free fluid. No free air. No fluid collection. LYMPH NODES: No significant adenopathy. VASCULAR STRUCTURES: No significant abnormality. URINARY BLADDER: No significant abnormality. REPRODUCTIVE ORGANS: Adenomyosis versus fibroid disease of the uterus. Pedunculated partially calcified lesion along the posterior aspect of the uterus measuring 4.7 cm. ADDITIONAL FINDINGS: Small fat-containing umbilical hernia. SKELETAL SYSTEM: No significant abnormality. IMPRESSION: 1. Negative for obstruction or localized inflammation. 2. Abnormal appearance to the uterus compatible with diffuse fibroid disease or adenomyosis. 3. Calcified lesion posterior to the uterus just to the left of midline at the cul-de-sac. Pedunculated fibroid versus calcified ovarian lesion. Signer Name: Glen Toscano MD Signed: 01/07/2022 1:49 AM Workstation Name: [id number] Transcribed By: ANNIA Dictated By: Glen Toscano MD Electronically Authenticated By: Glen Toscano MD Signed Date/Time: 01/07/22148 DD/ 2 TD/TT: Print Cancel [facility] [address] [place] [address] XRay Report Signed Patient: MAGDIEL PEPPER MR#: [id number] : 1975 Acct:[id number] Age/Sex: 46 / F ADM Date: 01/06/22 Loc: ED Attending Dr: Ordering Physician: SEDRICK MAYER Date of Service: 01/06/22 Procedure(s): XR chest 1V ap Accession Number(s): [id number] cc: SEDRICK MAYER Fluoro Time In Minutes: CHEST 1 VIEW 01/07/2022 12:56 AM INDICATION / CLINICAL INFORMATION: dyspnea. COMPARISON: 02/19/2021. FINDINGS: SUPPORT DEVICES: None. HEART / MEDIASTINUM: No significant abnormality. LUNGS / PLEURA: No significant pulmonary or pleural abnormality. No pneumothorax. ADDITIONAL FINDINGS: No significant additional findings. IMPRESSION: No acute abnormality. Signer Name: Glen Toscano MD Signed: 01/07/2022 2:03 AM Workstation Name: [id number] Transcribed By: ANNIA Dictated By: Glen Toscano MD Electronically Authenticated By: Glen Toscano MD Signed Date/Time: 01/07/22202 DD/ 1 TD/TT: Print ------ [facility] [address] [place] [address] XRay Report Signed Patient: MAGDIEL PEPPER MR#: [id number] : 1975 Acct:[id number] Age/Sex: 46 / F ADM Date: 01/06/22 Loc: ED Attending Dr: Ordering Physician: SEDRICK MAYER Date of Service: 01/06/22 Procedure(s): XR foot 3+V LT Accession Number(s): [id number] cc: SEDRICK MAYER Fluoro Time In Minutes: LEFT FOOT 3 VIEWS INDICATION / CLINICAL INFORMATION: foot pain s/p fall. COMPARISON: None available. FINDINGS: BONES / JOINT(S): No acute fracture or subluxation. No significant arthritis. SOFT TISSUES: No significant abnormality. ADDITIONAL FINDINGS: None. Signer Name: Glen Toscano MD Signed: 01/07/2022 2:04 AM Workstation Name: [id number] Transcribed By: ES Dictated By: Glen Toscano MD Electronically Authenticated By: Glen Toscano MD Signed Date/Time: 01/07/22203 DD/ 2 TD/TT: - Medical Decision Making This is a 46-year-old -Tristanian female with a history of the Kbuu-Rpcuweth-Yewgsj syndrome, anxiety, panic attacks, depression and migraine h eadaches presents to the ED with complaint of acute onset persistent diffuse abdominal pain, nausea and vomiting for the last 2 weeks. Patient also complains of exertional shortness of breath but states this is chronic. Patient also complains of left foot pain for the last 1 week which has gotten worse in the last 2 days with any movement. In the ED, patient is alert and oriented x3 and is not in any distress. Patient was treated for pain in the ED and also given antiemetics and antacids. Chest x-ray showed no acute cardiopulmonary abnormalities or pneumonitis. Left foot x-ray showed no acute fractures or subluxations. Lab test results were reviewed and are all nonactionable except for acute leukocytosis of 12,300 and hyperglycemia of 271 mg/dL. Urinalysis is unremarkable. Abdomen pelvis CT scan with IV contrast was negative for obstruction or localized inflammation. It however showed abnormal appearance to the uterus compatible with diffuse fibroid disease or adenomyosis. It also showed calcified lesion posterior to the uterus just to the left of midline at the cul-de-sac. Pedunculated fibroid versus calcified ovarian lesion. On reevaluation, patient's pain is well controlled medication. Patient was discharged home on pain medications and advised to follow-up with her primary care physician in 5 to 7 days for reevaluation or return to the ED immediately if symptoms get worse. - Differential Diagnosis SBO; UTI; diverticulitis; constipation; foot fracture; foot sprain; pneumon Critical care attestation.: If time is entered above; I have spent that time in minutes in the direct care of this critically ill patient, excluding procedure time. ED Disposition Clinical Impression: Diffuse abdominal pain, Tendinitis of left foot Sprain of left foot Qualifiers: Encounter type: initial encounter Qualified Code(s): S93.602A - Unspecified sprain of left foot, initial encounter Uterine fibroid Qualifiers: Uterine leiomyoma location: unspecified location Qualified Code(s): D25.9 - Leiomyoma of uterus, unspecified GERD (gastroesophageal reflux disease) Qualifiers: Esophagitis presence: esophagitis presence not specified Qualified Code(s): K21.9 - Gastro-esophageal reflux disease without esophagitis Disposition: 01 HOME / SELF CARE / HOMELESS Is pt being admited?: No Does the pt Need Aspirin: No Condition: Stable Instructions: Abdominal Pain (ED), Uterine Fibroids, [id number], Abdominal Pain, Adult, [id number]-[id number], Foot Sprain, Gastroesophageal Reflux Disease, Adult, [id number] Additional Instructions: All lab test results were reviewed and are all nonactionable. Chest x-ray showed no acute cardiopulmonary abnormalities or pneumonitis. Left foot x-ray showed no acute fractures or subluxations. Abdomen pelvis CT scan with IV contrast showed presence of calcified uterine fibroids. Therefore take medication with food, drink plenty of fluids and follow-up with your primary care physician in 7 to 10 days for reevaluation. Return to the ED immediately if symptoms get worse. Prescriptions: Dicyclomine [Bentyl] 20 mg PO Q6H PRN #30 tablet PRN Reason: ABDOMINAL PAIN Ibuprofen [Motrin] 800 mg PO Q8HR PRN #30 tablet PRN Reason: Pain , Severe (7-10) Famotidine [Pepcid] 20 mg PO BID #60 tablet Ondansetron [Zofran Odt] 4 mg PO Q8HR PRN #15 tab.rapdis PRN Reason: Nausea Referrals: [facility] [Provider Group] - 7-10 days Forms: Work/School Release Form(ED) Time of Disposition: 05:19 Print Language: TURKISH
[2022-01-07 05:50] VITALS: BP 113/55
--- NOTE | 2022-01-08 19:38 | Electrocardiograph Report ---
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
== END 2022-01-07 05:52 | disposition home or self-care (01) ==
LOC: ED 19:57
DX: S93.602A Unspecified sprain of left foot, initial encounter (principal); D25.9 Leiomyoma of uterus, unspecified; K21.9 Gastro-esophageal reflux disease without esophagitis; M77.8 Other enthesopathies, not elsewhere classified; G43.909 Migraine, unspecified, not intractable, without status migrainosus; F32.A Depression, unspecified; Z79.899 Other long term (current) drug therapy; X58.XXXA Exposure to other specified factors, initial encounter; Y93.89 Activity, other specified; Y92.89 Other specified places as the place of occurrence of the external cause; Y99.8 Other external cause status
CPT/HCPCS: 36415; 71045; 73630; 74177; 80053; 81001; 83690; 83880; 84484; 84703; 85025; 93005; 96374; 96375; 99284; J2270; J2405; J3490; Q9967